=== PATIENT | male | born 1950 | race Hispanic/Latino ===

== ENCOUNTER 2017-10-02 10:08 | Day surgery (SDC) | payer OTHER ==
--- NOTE | 2017-09-26 16:49 | RAD REPORT ---
EXAM DESCRIPTION: RAD - Chest Pa And Lat (2 Views) - 09/26/2017 4:43 pm CLINICAL HISTORY: preop Chest pain. COMPARISON: CHEST SINGLE VIEW dated 02/19/2008; Knee Left Wo Cont dated 09/11/2017 FINDINGS: The lungs are clear. The heart is normal in size. No displaced fractures. Mild thoracic sp ondylosis. IMPRESSION: No acute or concerning finding suspected.
[2017-09-26 17:10] LABS: Absolute Lymphocytes (CBC) 5.9 K/uL (0.7-4.9); Absolute Monocytes 0.8 K/uL (0.1-1.3); Absolute Neutrophil 7.2 K/uL (1.8-8.0); Basophils % 0.5 % (0-1.3); Eosinophils % 1.6 % (0-4.4); Hematocrit 42.5 % (39.6-49.0); Lymphocytes % 41.5 % (15.3-44.8); MCH 31.7 pg (27.0-35.0); MCV 91.3 fL (80-100); MPV 10.3 fL (7.6-11.3); Monocytes % 5.9 % (3.3-12.3); RBC Red Blood Cell Count 4.66 M/uL (4.33-5.43)
[2017-09-26 17:36] LABS: Albumin 3.8 g/dL (3.4-5.0); Bilirubin Total 1.4 mg/dL (0.2-1.0); Protein, Total 7.5 g/dL (6.4-8.2)
--- OUTSIDE RECORDS SUMMARY | 2017-10-02 10:12 | XMS REPORT ---
:1950 Author Organization eClinicalWorks Care Team Providers Name Role Phone TalamantesDima Provider Role Unavailable Allergies, Adverse Reactions, Alerts Substance Reaction Event Type N.K.D.A. Info Not Available Non Drug Allergy Problems Problem Type Condition Code Onset Dates Condition Status Assessment Effusion of left knee joint M25.462 Active Assessment Complex tear of medial meniscus of S83.232D Active left knee as current injury, subsequent encounter Problem Acute pain of left knee M25.562 Active Problem Complex tear of medial meniscus of S83.232D Active left knee as current injury, subsequent encounter Problem Primary osteoarthritis of left M17.12 Active knee Assessment Acute pain of left knee M25.562 Active Assessment Primary osteoarthritis of left M17.12 Active knee Problem Effusion of left knee joint M25.462 Active Medications Medication Code Code Instructions Start End Status Dosage System Date Date Metformin HCl ND 78399967070 500 MG Orally Active 1 tablet Once a day with a meal Simvastatin ND 04962424514 40 MG Orally Active 1 tablet Once a day in the evening Novolin 70/30 ND 54308683708 (70-30) 100 Active as UNIT/ML directed Subcutaneous Tylenol # 3 NDC 0 300/30mg PO Active one tab BID PRN Hydrochlorothiazide ND 87216385018 25 MG Orally Active 1 tablet Once a day in the morning Lisinopril ND 03232993108 10 MG Orally Active 1 tablet Once a day Results No Known Results Summary Purpose eClinicalWorks Submission
--- OUTSIDE RECORDS SUMMARY | 2017-10-02 10:12 | XMS REPORT ---
:1950 Author Organization eClinicalWorks Care Team Providers Name Role Phone Dima Talamantes Provider Role Unavailable Allergies, Adverse Reactions, Alerts Substance Reaction Event Type N.K.D.A. Info Not Available Non Drug Allergy Problems Problem Type Condition Code Onset Dates Condition Status Assessment Complex tear of medial meniscus of S83.232D Active left knee as current injury, subsequent encounter Assessment Pain, joint, knee, left M25.562 Active Assessment Unilateral primary osteoarthritis, M17.12 Active left knee Assessment Effusion of left knee joint M25.462 Active Problem Unilateral primary osteoarthritis, M17.12 Active left knee Problem Primary osteoarthritis of left M17.12 Active knee Problem Pain, joint, knee, left M25.562 Active Problem Effusion of left knee joint M25.462 Active Problem Acute pain of left knee M25.562 Active Problem Complex tear of medial meniscus of S83.232D Active left knee as current injury, subsequent encounter Medications Medication Code System Code Instructions Start Date End Date Status Dosage Hydrochlorothiazide NDC 0 Active not defined Results No Known Results Summary Purpose eClinicalWorks Submission
[2017-10-02] MEDS ORDERED: CEFAZOLIN/SWI 1gm 1 GM/10 ML SYR ONE (10:48)
[2017-10-02] MEDS ORDERED: NA CHLORIDE 0.9% 1,000 ML ONE ×2 (10:48→14:46)
[2017-10-02] MEDS ORDERED: DEPO-MEDROL 40 MG/ML IM ONE (11:26)
[2017-10-02] MEDS ORDERED: LIDOCAINE 2% MPF 5 ML VIAL ONE (11:27)
[2017-10-02] MEDS ORDERED: PROPOFOL 200 MG/20 ML VIAL IV ONE (11:27)
[2017-10-02] MEDS ORDERED: BUPIVACAINE 0.25% PF 10 ML VIAL ONE (11:27)
[2017-10-02] MEDS ORDERED: FENTANYL CITR 100 MCG/2 ML ONE (11:27)
[2017-10-02] MEDS ORDERED: MIDAZOLAM HCL 2 MG/2 ML INJ ONE (11:27)
[2017-10-02] MEDS ORDERED: ONDANSETRON HCL 40 MG/20 ML VIAL ONE (12:26)
[2017-10-02] MEDS ORDERED: LABETALOL 20 MG/4ML SYRINGE IV ONE (13:25)
[2017-10-02] MEDS: MEPERIDINE HCL 50 MG/ML AMP ONE ×3 (14:04→14:30)
--- NOTE | 2017-10-02 14:13 | P.BOP ---
Preoperative diagnosis: Left Knee Internal Derangement, Med. Menisc. Tear by MRI Postoperative diagnosis: Tear med.menisc.,G3&4 chondromal med.compt;diffuse hypertrophic synovit. Primary procedure: D.A.&Part.Med.Menisec.,Shaving condromal.med.compt.; ant.partial synovectomy Package Liner: Dima Talamantes Estimated blood loss: <5mL Specimen: shavings Findings: severe grade 3&4chondromal.&complex tear med.menisc.diff.hyprtro.synovit. Anesthesia: General Complications: None Fluids & blood products: inj 0.25%[id number] & 1 mL Depo-Medrol 40mg Transferred to: Recovery Room Condition: Good
[2017-10-02 15:01] VITALS: BP 138/87; TEMP 96.9; O2SAT 98
[2017-10-02] MEDS ORDERED: HYDROCODONE/APAP 5/325 MG TAB ONE (15:19)
--- NOTE | 2017-10-04 23:40 | OP ---
Date of Procedure: 10/02/2017 Surgeon: Dima Talamantes MD Preoperative Diagnoses: Left knee internal derangement, medial meniscal tear by MRI. 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 Primary Procedure: Diagnostic arthroscopy of the left knee with partial medial meniscectomy, shaving of chondromalacia grade 3 and 4 medial compartment, and anterior partial synovectomy. Indications: This 67-year-old male has experienced popping, locking, and weakness in his left knee. 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 He has been walking wi th a pronounced limp and a cane for support. MRI scan has shown a medial meniscal tear and the patie nt is having severe mechanical symptoms. He has elected to proceed with diagnostic arthroscopy and i ndicated procedures. Technique: The patient was taken to the operating room and given a general anesthetic. The left low er extremity was placed in the knee galvan with the tourniquet in position. The foot of the bed was dropped and a trough cushion was placed under the right thigh and hip with a bolster to prevent exten laura of the hip. The instrumentation was placed in through the distal medial portal and the scope wa s placed in through the distal lateral portal. Only 2 portals were used for this case. The patellof emoral joint was inspected with smooth surface for the patella and a mildly excoriated surface for th e trochlear groove passing into the medial compartment. It was noted that there was bare bone expose d adjacent to the complex tear of the midbody and posterior horn of the medial meniscus. The suction punch shaver and left biting forceps were used to take the meniscal fragment back to a stable remnan t. Shaving and smoothing of both chondral surfaces in the medial compartment were carried out. Pass ing into the intracondylar notch, the ACL was inspected and noted to tighten with anterior drawer mohan t. The origin of the posterior cruciate ligament was inspected as well. Passing into the lateral co mpartment, the meniscus was noted to be intact with smooth chondral surfaces in the lateral compartme nt. Moving into the suprapatellar pouch, there was extensive hypertrophic synovitis and shaving and smoothing of the hypertrophic synovitis was carried out in the suprapatellar pouch and in both the me dial and lateral gutters and intracondylar notch. Estimated blood loss was less than 5 mL. The inst rumentation was withdrawn. Punctures were closed with 4-0 nylon with interrupted sutures. The punct ures were injected with 10 mL of 0.25% Marcaine plain and 1 cc of Depo-Medrol 40 mg was instilled int o the intraarticular space prior to application of Xeroform gauze, ABD pad, soft roll, and an Maurice wra p for bandage. The patient was then taken to the recovery room having tolerated this procedure well. FANG/YENI Voice ID: [id number] Report ID: [id number]
== END 2017-10-02 15:48 | disposition home or self-care (01) ==
LOC: OR 10:08
PROVIDERS: ATTEND Orthopaedic Surgery
PROC: 0SBD4ZZ Excision of Left Knee Joint, Percutaneous Endoscopic Approach (ICD-10-PCS; 2017-10-02)
PROC: 0SBD4ZZ Excision of Left Knee Joint, Percutaneous Endoscopic Approach (ICD-10-PCS; principal; 2017-10-02 11:30)
DX: S83.232D Complex tear of medial meniscus, current injury, left knee, subsequent encounter (principal); M25.462 Effusion, left knee; M17.12 Unilateral primary osteoarthritis, left knee; W50.2XXD Accidental twist by another person, subsequent encounter; S80.12XD Contusion of left lower leg, subsequent encounter; M94.262 Chondromalacia, left knee; M65.862 Other synovitis and tenosynovitis, left lower leg
CPT/HCPCS: 29876; 29881; 36415; 71046; 80053; 82962 ×2; 83036; 85025; 88304; J0690; J1030; J2175; J2250; J2405; J3010; J7030 ×2

== ENCOUNTER 2018-05-14 06:07 | Inpatient (IN) | payer OTHER ==
--- NOTE | 2018-05-08 10:48 | RAD REPORT ---
EXAM DESCRIPTION: RAD - Chest Pa And Lat (2 Views) - 05/08/2018 10:33 am CLINICAL HISTORY: Preop chest, left total knee replacement pending COMPARISON: September 26, 2017 TECHNIQUE: PA and lateral views of the chest were obtained. FINDINGS: The lungs are clear of an acute mass or infiltrate. No failure or volume overload. Lung ma rkings are prominent but not clearly different. Trachea is midline. Heart size is normal and central vasculature is within normal limits. No pleural effusion or pneumothorax seen. No acute bony findi ng noted. No aortic abnormality. IMPRESSION: No acute cardiopulmonary process. No significant change from comparison.
[2018-05-08 11:20] LABS: Absolute Lymphocytes (CBC) 4.1 K/uL (0.7-4.9); Absolute Monocytes 0.8 K/uL (0.1-1.3); Absolute Neutrophil 3.8 K/uL (1.8-8.0); Eosinophils % 1.6 % (0-4.4); Hematocrit 47.2 % (39.6-49.0); Lymphocytes % 45.9 % (15.3-44.8); MPV 9.3 fL (7.6-11.3); Monocytes % 8.7 % (3.3-12.3); RBC Red Blood Cell Count 5.13 M/uL (4.33-5.43)
[2018-05-08 11:21] LABS: Urine Appearance CLEAR; Urine Bilirubin NEGATIVE (NEG); Urine Blood NEGATIVE (NEG); Urine Color YELLOW; Urine Glucose 3+ (NEG); Urine Protein NEGATIVE (NEG); Urine Specific Gravity >=1.030 (1.005-1.030); Urine Urobilinogen 0.2 mg/dL (0.2-1.0); Urine pH 5.5 (5.0-7.0)
[2018-05-08 11:25] LABS: Urine Microscopic Reflex NO UMIC
[2018-05-08 11:25] LABS: Protime INR 0.96
[2018-05-08 11:43] LABS: Albumin 4.1 g/dL (3.4-5.0); Bilirubin Total 1.3 mg/dL (0.2-1.0); Potassium 4.4 mmol/L (3.5-5.1); Protein, Total 7.9 g/dL (6.4-8.2)
[2018-05-08 11:47] LABS: Albumin 4.1 g/dL (3.4-5.0); Bilirubin Direct 0.3 mg/dL (0-0.2); Bilirubin Total 1.3 mg/dL (0.2-1.0); Protein, Total 7.8 g/dL (6.4-8.2)
[2018-05-08 13:01] LABS: Platelet Estimate ADEQ
[2018-05-08 13:02] LABS: Blood Morphology Comment NOT SEEN (NOT SEEN)
--- NOTE | 2018-05-09 10:36 | EKG ---
Test Date: 2018-05-08 Test Time: 09:41:18 Infrastructure Software Engineer: FATIMAH MEASUREMENT RESULTS: Intervals: Rate: 69 UT: 180 QRSD: 72 QT: 402 QTc: 430 [place]: P: 58 UT: 180 QRS: 38 T: 33 INTERPRETIVE STATEMENTS: Normal sinus rhythm Normal ECG Compared to ECG 04/13/2013 07:22:10 No significant changes Electronically Signed On 05-08-18 17:49:31 CDT by Gigi Carrillo
--- OUTSIDE RECORDS SUMMARY | 2018-05-14 06:16 | XMS REPORT ---
[...] Dosage System Date Date Metformin HCl ND 75745705458 500 MG Orally Active 1 tablet Once a day with a meal Simvastatin ND 46488877438 40 MG Orally Active 1 tablet Once a day in the evening Novolin 70/30 ND 78366914600 (70-30) 100 Active as UNIT/ML directed Subcutaneous Tylenol # 3 NDC 0 300/30mg PO Active one tab BID PRN Hydrochlorothiazide ND 70765847842 25 MG Orally Active 1 tablet Once a day in the morning Lisinopril ND 65172464668 10 MG Orally Active 1 tablet Once a day Results No Known Results Summary Purpose eClinicalWorks Submission
--- OUTSIDE RECORDS SUMMARY | 2018-05-14 06:16 | XMS REPORT ---
:1950 Author Organization eClinicalWorks Care Team Providers Name Role Phone Talamantes Dima Provider Role Unavailable Allergies No Known Allergies Problems Problem Type Condition Code Onset Dates Condition Status Problem Unilateral primary osteoarthritis, M17.12 Active left knee Problem Primary osteoarthritis of left M17.12 Active knee Problem Pain, joint, knee, left M25.562 Active Problem Effusion of left knee joint M25.462 Active Problem Acute pain of left knee M25.562 Active Problem Complex tear of medial meniscus of S83.232D Active left knee as current injury, subsequent encounter Medications Medication Code System Code Instructions Start End Date Status Dosage Date [facility] 63491345112 5-325 MG Orally Oct 05, Active 1 tablet every 6 hrs 2017 as needed Results No Known Results Summary Purpose eClinicalWorks Submission
--- OUTSIDE RECORDS SUMMARY | 2018-05-14 06:17 | XMS REPORT ---
:1950 Author Organization eClinicalWorks Care Team Providers Name Role Phone Talamantes Dima Provider Role Unavailable Allergies, Adverse Reactions, Alerts Substance Reaction Event Type N.K.D.A. 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 Problem Complex tear of medial meniscus of S83.232D Active left knee as current injury, subsequent encounter Problem Effusion of left knee joint M25.462 Active Problem Primary osteoarthritis of left M17.12 Active knee Problem Acute pain of left knee M25.562 Active Medications Medication Code Code Instructions Start End Status Dosage System Date Date Hydrochlorothiazide [facility] 78519289928 25 MG Orally Active 1 tablet Once a day in the morning [place] [facility] 40540605458 5-325 MG Oct 05, Active 1 tablet Orally every 2017 as needed hrs Lisinopril ND 08867858354 10 MG Orally Active 1 tablet Once a day Tylenol # 3 NDC 0 300/30mg PO Active one tab BID PRN Novolin 70/30 ND 10124945725 (70-30) 100 Active as UNIT/ML directed Subcutaneous Metformin HCl ND 71961184307 500 MG Orally Active 1 tablet Once a day with a meal Simvastatin ND 43937109710 40 MG Orally Active 1 tablet Once a day in the evening Results No Known Results Summary Purpose eClinicalWorks Submission
--- OUTSIDE RECORDS SUMMARY | 2018-05-14 06:17 | XMS REPORT ---
[...] knee as current injury, subsequent encounter Assessment Primary osteoarthritis of left M17.12 Active [...] Start End Status Dosage System Date Date [place] [facility] 15456082007 5-325 MG Oct 05, Active 1 tablet Orally every 2017 as needed hrs Lisinopril ND 83285101210 10 MG Orally Active 1 tablet Once a day Novolin 70/30 [facility] 96606484963 (70-30) 100 Active as UNIT/ML directed Subcutaneous Hydrochlorothiazide ND 14844689720 25 MG Orally Active 1 tablet Once a day in the morning Metformin HCl ND 70971808656 500 MG Orally Active 1 tablet Once a day with a meal Simvastatin ND 87469025059 40 MG Orally Active 1 tablet Once a day in the evening Tylenol # 3 NDC 0 300/30mg PO Active one tab BID PRN Results No Known Results Summary Purpose eClinicalWorks Submission
--- OUTSIDE RECORDS SUMMARY | 2018-05-14 06:17 | XMS REPORT ---
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
--- OUTSIDE RECORDS SUMMARY | 2018-05-14 06:17 | XMS REPORT ---
:1950 Author Organization eClinicalWorks Care Team Providers Name Role Phone Talamantes Dima Provider Role Unavailable Allergies No Known Allergies Problems Problem Type Condition Code Onset Dates Condition Status Assessment Primary osteoarthritis of left M17.12 Active [...] pain of left knee M25.562 Active Medications No Known Medications Results No Known Results Summary Purpose eClinicalWorks Submission
--- OUTSIDE RECORDS SUMMARY | 2018-05-14 06:17 | XMS REPORT ---
[...] knee as current injury, subsequent encounter Assessment Effusion of left knee joint M25.462 Active Assessment Primary osteoarthritis of left M17.12 [...] Dosage System Date Date Metformin HCl ND 02672750308 500 MG Orally Active 1 tablet Once a day with a meal [place] ND 39237401173 5-325 MG Oct 05, Active 1 tablet Orally every 2017 as needed hrs Lisinopril ND 08906037093 10 MG Orally Active 1 tablet Once a day Novolin 70/30 ND 42833689486 (70-30) 100 Active as UNIT/ML directed Subcutaneous Tylenol # 3 NDC 0 300/30mg PO Active one tab BID PRN Hydrochlorothiazide ND 57197070479 25 MG Orally Active 1 tablet Once a day in the morning Simvastatin ND 12906459461 40 MG Orally Active 1 tablet Once a day in the evening Results Name Result Date Reference Range Unit Abnormality Flag Anaerobic Culture ----Anaerobic NO ANAEROBES GROWN. [id number] Culture Body Fluid Crystals ----Body Fluid NONE SEEN [id number] Crystals Gram Stain ----NO WBCS SEEN . [id number] ----NO ORGANISMS . [id number] SEEN Summary Purpose eClinicalWorks Submission
--- OUTSIDE RECORDS SUMMARY | 2018-05-14 06:17 | XMS REPORT ---
:1950 Author Organization eClinicalWorks Care Team Providers Name Role Phone TalamantesDima Provider Role Unavailable Allergies, Adverse Reactions, Alerts Substance Reaction Event Type N.K.D.A. Info Not Available Non Drug Allergy Problems Problem Type Condition Code Onset Dates Condition Status Assessment Primary osteoarthritis of left M17.12 Active knee Assessment Pain, joint, knee, left M25.562 Active Problem Pain, joint, knee, left M25.562 Active [...] Start End Status Dosage System Date Date Simvastatin [facility] 98006910990 40 MG Orally Active 1 tablet Once a day in the evening Jardiance [facility] [address]-93 Active not defined Lisinopril [facility] 17828986866 10 MG Orally Active 1 tablet Once a day Trulicity [facility] [address]-32 Active not defined Hydrochlorothiazide [facility] 84581644943 25 MG Orally Active 1 tablet Once a day in the morning Novolin 70/30 [facility] 34180010564 (70-30) 100 Active as UNIT/ML directed Subcutaneous Metformin HCl [facility] 79636830908 500 MG Orally Active 1 tablet Once a day with a meal Results No Known Results Summary Purpose eClinicalWorks Submission
--- OUTSIDE RECORDS SUMMARY | 2018-05-14 06:17 | XMS REPORT ---
[...] End Status Dosage System Date Date Hydrochlorothiazide [facility] 51817740911 25 MG Orally Active 1 tablet Once a day in the morning Metformin HCl [facility] 29844877855 500 MG Orally Active 1 tablet Once a day with a meal Lisinopril [facility] 75564161627 10 MG Orally Active 1 tablet Once a day Simvastatin [facility] 40473790586 40 MG Orally Active 1 tablet Once a day in the evening Novolin 70/30 [facility] 93597334396 (70-30) 100 Active as UNIT/ML directed Subcutaneous Results No Known Results Summary Purpose eClinicalWorks Submission
[2018-05-14] MEDS ORDERED: CEFAZOLIN/SWI 1gm 1 GM/10 ML SYR ONE (06:34)
[2018-05-14] MEDS ORDERED: NA CHLORIDE 0.9% 1,000 ML ONE ×2 (06:34→11:02)
[2018-05-14] MEDS ORDERED: NA CHLORIDE 0.9% 250 ML ONE (07:02)
[2018-05-14] MEDS ORDERED: BUPIVACA 0.5%/EPI 0.0005%/PF 30 ML VIAL ONE (07:02)
[2018-05-14] MEDS ORDERED: MIDAZOLAM HCL 2 MG/2 ML INJ ONE (07:08)
[2018-05-14] MEDS ORDERED: PROPOFOL 200 MG/20 ML VIAL IV ONE (07:08)
[2018-05-14] MEDS ORDERED: LIDOCAINE 2% MPF 5 ML VIAL ONE (07:08)
[2018-05-14] MEDS ORDERED: FENTANYL CITR 250 MCG/5 ML ONE (07:09)
[2018-05-14] MEDS ORDERED: ROPLVACAINE HCL 40 ML ONE (07:16)
[2018-05-14] MEDS ORDERED: DEXAMETHASONE 4 MG/ML VIAL ONE (07:16)
[2018-05-14] MEDS ORDERED: TRANEXAMIC ACID 1,000 MG in NA CHLORIDE 0.9% 50 ML IV SCH (07:30)
[2018-05-14] MEDS ORDERED: FENTANYL CITR 100 MCG/2 ML ONE (10:13)
[2018-05-14] MEDS ORDERED: KETOROLAC 30 MG/ML INJ ONE (10:57)
--- NOTE | 2018-05-14 11:45 | P.BOP ---
Preoperative diagnosis: PRIMARY OSTEOARTHRITIS LEFT KNEE Postoperative diagnosis: SAME Primary procedure: LEFT TOTAL KNEE ARTHROPLASTY WITH COMPUTER NAVIGATION, IMAGELESS Industrial Cleaning Technician: Dima Talamantes Estimated blood loss: 50mL Specimen: BONE SHARDS AND SOFT TISSUE DEBRIDED Findings: EBURNATED BONE MED. COMP Anesthesia: General Implants: SIGMA [id number];TIB [id number];35mmOD PATELLA;IFEOMA HDw /GENT Fluids & blood products: INJ 30 mL 0.5%MARCAINE Transferred to: Recovery Room Condition: Good
[2018-05-14] MEDS ORDERED: ZOLPIDEM TARTRATE 5 MG TABLET PO PRN (11:46)
[2018-05-14] MEDS ORDERED: DOCUSATE NA 100 MG CAP PO PRN (11:46)
[2018-05-14] MEDS ORDERED: ONDANSETRON 4 MG/2 ML VIAL IV PRN (11:46)
[2018-05-14] MEDS: HYDROMORPHONE HCL 2 MG/ML inj ONE ×2 (11:47→12:10)
--- NOTE | 2018-05-14 12:33 | RAD REPORT ---
EXAM DESCRIPTION: RAD - Knee Left 2 View - 05/14/2018 12:28 pm CLINICAL HISTORY: Post Op Left TKA COMPARISON: No comparisons FINDINGS: Left total knee arthroplasty is noted. Small amount of air is present in the joint. Skin s taples are noted anteriorly. No unexpected finding. IMPRESSION: Left TKA.
[2018-05-14 12:34] LABS: Hematocrit 46.3 % (39.6-49.0)
[2018-05-14 13:51] VITALS: BMI 26.6
[2018-05-14] MEDS: Ringers Lactate 1,000 ML IV SCH (14:13)
[2018-05-14] MEDS ORDERED: D50W 25 GM/50 ML SYRINGE IV PRN (15:32)
[2018-05-14] MEDS ORDERED: GLUCAGON 1 MG/VIAL IM PRN (15:32)
--- NOTE | 2018-05-14 15:40 | P.CNS ---
Date of Consult: 05/14/18 Reason for Consult: Medical Management Requesting Physician: Dima Talamantes Primary Care Provider: Dr. Calderon; Orthopedics-Dr. Talamantes Chief Complaint: Status post left knee replacement History of Present Illness: 68-year-old male presented to the hospital for left total knee arthroplasty. I was consulted for medical management. Patient with history of hypertension, diabetes, hyperlipidemia, and allergic rhinitis. Patient is insulin dependent. Patient currently stable this time. Patient had surgery today. No complaints noted. No prior problems prior to admission. A1c very well controlled. Medications reviewed. Lab reviewed. Allergies No Known Allergies Allergy (Verified 02/06/18 08:29) Home medications list reviewed: Yes Home Medications: Metformin HCl [Glucophage] 1,000 mg PO BID 04/12/13 Simvastatin [Zocor*] 40 mg PO DAILY 04/12/13 Fexofenadine HCl [Mona Allergy] 180 mg PO DAILY 09/26/17 Insuln Asp Prt/Insulin Aspart [Novolog Mix 70-30 Vial] 20 unit SQ TIDWM hydroCHLOROthiazide [Hydrochlorothiazide] 25 mg PO DAILY 09/26/17 Aspirin [Aspirin EC 81 MG] 81 mg PO DAILY 02/06/18 Dulaglutide [Trulicity] 0.75 mg SQ EVERY 7TH DAY 05/08/18 Empagliflozin [Jardiance] 10 mg PO DAILY 05/08/18 Lisinopril 10 mg PO DAILY 05/14/18 - Past Medical/Surgical History Diabetic: Yes -: Hypertension -: Diabetes mellitus type 2, insulin-dependent -: Osteoarthritis -: Hyperlipidemia -: Chronic allergic rhinitis -: History of splenectomy -: Splenectomy 1968 -: cholecystectomy 2014 -: left knee apa sep 2017 Psychosocial/ Personal History: Patient is . He has 3 children. 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 - Family History Mother Medical History: Diabetes, Cancer Notes: father had enlarged heart, mother had skin cancer - Social History Smoking Status: Former smoker Alcohol use: Yes CD- Drugs: No Caffeine use: Yes Place of Residence: Home Review of Systems General: As per HPI Eyes: Unremarkable ENT: Unremarkable Respiratory: Unremarkable Cardiovascular: Unremarkable Gastrointestinal: Unremarkable Genitourinary: Unremarkable Musculoskeletal: As per HPI Integumentary: Unremarkable Neurological: Unremarkable Lymphatics: Unremarkable Physical Examination Temp Pulse Resp BP Pulse Ox 98 F 108 H 18 139/75 93 05/14/18 13:35 05/14/18 13:35 05/14/18 13:35 05/14/18 13:35 05/14/18 13:35 General: Alert, In no apparent distress, Oriented x3, Cooperative HEENT: Atraumatic, Normocephalic, PERRLA, Mucous membr. moist/pink Neck: Supple, No Thyromegaly Respiratory: Clear to auscultation bilaterally, Normal air movement Cardiovascular: Normal pulses, Regular rate/rhythm Gastrointestinal: Normal bowel sounds, Soft and benign, Non-distended, No tenderness, No masses, No rebound, No guarding Musculoskeletal: No erythema, No tenderness, No warmth Integumentary: No tenderness/swelling, No erythema, No warmth, No cyanosis, Other (Postoperative changes to the left knee) Neurological: Normal speech, Normal strength at 5/5 x4 extr, Normal tone, Normal affect Laboratory Data (last 24 hrs) 05/14/18 12:08: Hgb 15.1, Hct 46.3 Conclusions/Impression: Impression: Left total knee arthroplasty secondary to osteoarthritis Diabetes mellitus type 2, insulin-dependent Hypertension Hyperlipidemia Chronic allergic rhinitis Plan: Left total knee arthroplasty secondary to osteoarthritis: Patient had surgery today. Anticipate start of physical therapy tomorrow. Continue DVT prophylaxis. Patient to be further evaluated for possible inpatient rehab versus home with outpatient physical therapy. Await further recommendations by orthopedics and physical therapy. Will provide incentive spirometer. Will continue with pain control medication. Diabetes mellitus type 2, insulin-dependent: Patient takes insulin 70/30 at home. Will start basal insulin-Lantus 10 units at night. Will provide sliding scale. Will monitor closely. Will hold his oral medication. Hypertension: Restart home medication-lisinopril and hydrochlorothiazide. Will monitor and adjust appropriately. Hyperlipidemia: Restart home medication. Chronic allergic rhinitis: Restart home medication. Time Spent Managing Pts care (In Minutes): 55
[2018-05-14] MEDS: INSULIN -REGULAR HUMAN 50 UNIT/0.5 ML ML SQ SCH ×2 (16:30→21:00)
[2018-05-14] MEDS: METFORMIN HCL 500 MG TAB PO SCH (16:42)
[2018-05-14] MEDS: CEFAZOLIN/SWI 1gm 1 GM/10 ML SYR IV SCH (16:43)
[2018-05-14] MEDS: MORPHINE 2 MG/ML SYR IV PRN (16:46)
[2018-05-14] MEDS: ATORVASTATIN 20 MG TAB PO SCH (20:49)
[2018-05-14] MEDS ORDERED: HOME MED 1 EA UNK (Metformin Hcl [Glucophage] 1,000 MG) PO SCH (21:00)
[2018-05-14] MEDS: INSULIN GLARGINE 100 UNITS/ML SQ SCH (21:04)
[2018-05-15] MEDS: CEFAZOLIN/SWI 1gm 1 GM/10 ML SYR IV SCH ×2 (00:42→09:57)
[2018-05-15] MEDS: HYDROCODONE/APAP 7.5/325 MG TAB PO PRN ×3 (05:55→18:56)
[2018-05-15 06:38] LABS: Hematocrit 43.2 % (39.6-49.0)
[2018-05-15 06:52] LABS: BUN Blood Urea Nitrogen 16 mg/dL (7-18); Bicarbonate 28 mmol/L (21-32); Glucose Level 124 mg/dL (74-106); Magnesium 2.2 mg/dL (1.8-2.4); Potassium 4.2 mmol/L (3.5-5.1); Sodium Level 140 mmol/L (136-145)
[2018-05-15] MEDS: INSULIN -REGULAR HUMAN 50 UNIT/0.5 ML ML SQ SCH ×4 (07:30→21:00)
[2018-05-15] MEDS ORDERED: HOME MED 1 EA UNK (Simvastatin [Zocor*] 40 MG) PO SCH (09:00)
--- NOTE | 2018-05-15 09:36 | P.PN ---
Subjective Date of Service: 05/15/18 Primary Care Provider: Dr. Calderon; Orthopedics-Dr. Talamantes Chief Complaint: Status post left knee replacement Subjective: Doing well Physical Examination - Vital Signs Temperature: 97.5 F Blood Pressure: 136/77 Pulse: 82 Respirations: 16 Pulse Ox (%): 97 - Physical Exam General: Alert, In no apparent distress, Oriented x3, Cooperative HEENT: Atraumatic Neck: Supple Respiratory: Clear to auscultation bilaterally, Normal air movement Cardiovascular: Normal pulses, Regular rate/rhythm Gastrointestinal: Normal bowel sounds, Soft and benign, Non-distended, No tenderness, No masses, No rebound, No guarding Musculoskeletal: No erythema, No tenderness, No warmth Integumentary: No tenderness/swelling, No erythema, No warmth, No cyanosis Neurological: Normal speech, Normal strength at 5/5 x4 extr, Normal tone - Studies Laboratory Data (last 24 hrs) 05/15/18 05:43: Sodium 140, Potassium 4.2, BUN 16, Creatinine 0.75, Glucose 124 H, Magnesium 2.2 05/15/18 05:43: Hgb 14.4, Hct 43.2 05/14/18 12:08: Hgb 15.1, Hct 46.3 Medications List Reviewed: Yes Assessment & Plan Discharge Plan: Home Plan to discharge in: 48 Hours Physician Review Additional Text: Impression: Left total knee arthroplasty secondary to osteoarthritis, postop day 1 Diabetes mellitus type 2, insulin-dependent Hypertension Hyperlipidemia Chronic allergic rhinitis Plan: Left total knee arthroplasty secondary to osteoarthritis, postop day 1: Patient had surgery yesterday. Patient has done well. Pain under control. Physical therapy to start today. Continue DVT prophylaxis and pain medication. Patient desires to go home at discharge with therapy. Encourage incentive spirometer. Await further recommendations from orthopedics. Diabetes mellitus type 2, insulin-dependent: Patient takes insulin 70/30 at home. Continue with basal insulin-Lantus 10 units at night. Will provide sliding scale. Will monitor closely. Will hold his oral medication. Hypertension: Continue home medication-lisinopril and hydrochlorothiazide. Will monitor and adjust appropriately. Hyperlipidemia: Continue home medication. Chronic allergic rhinitis: Continue home medication. Time Spent Managing Pts Care (In Minutes): 55
[2018-05-15] MEDS: Ringers Lactate 1,000 ML IV SCH (09:57)
[2018-05-15] MEDS: FEXOFENADINE 180 MG TAB PO SCH (09:57)
[2018-05-15] MEDS: MORPHINE 2 MG/ML SYR IV PRN ×3 (09:57→21:29)
[2018-05-15] MEDS: METFORMIN HCL 500 MG TAB PO SCH ×2 (09:58→16:50)
[2018-05-15] MEDS: CELECOXIB 100 MG CAPSULE PO SCH (09:58)
[2018-05-15] MEDS: LISINOPRIL 10 MG TAB PO SCH (09:58)
[2018-05-15] MEDS: hydroCHLOROthiazide 25 MG TAB PO SCH (09:58)
[2018-05-15] MEDS: ENOXAPARIN 40 MG/0.4 ML SQ SCH (16:50)
--- NOTE | 2018-05-15 20:20 | OP ---
Date of Procedure: 05/14/2018 Surgeon: Dima Talamantes MD Tool Or Die Drawing Checker: Dr. Bairon Talamantes. Preoperative Diagnosis: Primary osteoarthritis, left knee. Postoperative Diagnosis: Primary osteoarthritis, left knee. Procedures Performed: Left total knee arthroplasty with computer navigation, imageless. Technique: The patient was taken to the operating room and given a general anesthetic. He was place d in the supine position with a bolster under the left hip and a rest on the operating table to posit ion the limb at 90 degrees flexion. The prepping and draping was carried out with a tourniquet in th e proximal thigh. The draping included Ioban sticky drape applied after the incision was drawn on th e skin. Exsanguination with an Esmarch bandage was followed by inflating the tourniquet to 250 mmHg. This was left up for 135 minutes and deflated after cementing had been accomplished. The incision was made on the anterior aspect of the knee beginning just medial to the tibial tubercle and extendin g over the medial third of the patella and approximately 4-5 cm from the proximal pole of the patella . This was carried sharply through the skin and subcutaneous tissue with cauterization to provide he mostasis. The medial parapatellar approach was utilized to allow eversion of the patella. The bev ed patella was measured at 21 mm in thickness. The size 35 mm oval dome patella was chosen and the a djustments were made for the cutting jig. The articular surface was removed. PEG holes were drilled . The trial component for the patella was put in position and measured again at 21 mm thickness. Th e anterior aspect of the knee was sharply debrided to include ACL and origin of PCL and meniscal frag ments that could be reached along with some of the fat pad and ligamentum mucosum. The thickening of the fat pad was noted and was quite tense and tight. The arrays were put in position on a 3 mm thre aded pins proximally in the incision at the distal medial femur and the arrays were put through 2 pun ctures close to the mid tibial area. Once the arrays were in position, the limb was moved in circumd uction to record the center of rotation of the femoral head. The registration was carried out in seq uence for the femur and the tibia and the computer solved for a size 4 femur and size 5 tibia. Numbe rs were accepted and the cutting guide for the proximal tibia was navigated into position. Hohmann r etractors were placed at the medial and lateral and posterior positions and the oscillating saw was u sed to make the cut. The tibial plateau portion was removed and the flat-footed array indicated an a ccurate cut had been made. Tensiometers were put in position. The numbers were good and no addition al ligament loosening was needed at that time, so progression to cutting the distal femur was accompl ished by navigating that cutting jig into position and making that cut. It was verified with the fla t-footed array. The 4-in-1 cutting guide for the size 4 was chosen, and those cuts were made after v erification of the anterior cut. With the posterior cuts made, it was found that the 10 mm jig in ex tension was a good fit, but in flexion, the 10 mm jig would not fit. It was necessary to increase th e size of the flexion gap, so the distal femur was recut to the size 3 femoral component. At that po int, the spacer for the 10 mm insert was a good fit for extension and flexion. The switch box installer was pl aced in position. That cut was made, and the trial fit perfectly. It was removed and preparation of the tibial cut surface was accomplished for the size 4 tray. The trial components all in position s howed excellent extension to 0 degrees and flexion to 130 degrees without displacement of components or patella that was freely tracking. The trial components were all removed. Simpulse lavage was uti lized and then drying of the cut surfaces was accomplished while 2 batches of [place] HV cement with gentamicin were placed in a cement gun. The injection technique was utilized for the proximal cut holland rface of the tibia. The tibial component was tapped into position. Excess cement was curetted away. The injection technique was carried out for the distal femur and the component size 3 was tapped in to position and held there with a trial insert placed between tibial and femoral components with the knee extended. The injection technique was used for the patella and the 35 mm oval dome patella was clamped into position. Cement was allowed to set for 18 minutes. The tourniquet was released after 13 minutes at 135 minutes. The closure was then affected after Simpulse lavage was again utilized at each level of closure using #1 Vicryl for the fascial layer, 2-0 Vicryl for the superficial subcutan eous layer, and skin jon for the skin. Aquacel bandage was applied. Estimated blood loss was 50 mL. The patient had been given Ancef 1 g 30 minutes prior to the procedure. At the time of the inc ision, he was given 1 g of tranexamic acid IV at the time of the incision and another gram was given at the initiation of closure. At the end of the operation, 30 mL of 0.5% Marcaine with epinephrine was injected into the incisional area prior to the Aquacel costa ges applied. FANG/YENI Voice ID: [id number] Report ID: [id number]
--- NOTE | 2018-05-15 20:25 | P.PN ---
Date of Service: 05/15/18 (POD#1) S: This patient was seen at just before 10 oclock this morning and after 4 PM this afternoon. He continues to have great progress for postop day number one.This patient was seen at just before 10 oclock this morning and after 4 PM this afternoon. He continues to have great progress for postop day number one. O: VSS, Afebrile, hemoglobin today is 14.4 down slightly from 15.1 postoperatively pain is listed as zero, six, two with the first significant number appearing at 5:55 AM as his block wore off. The patient was noted during morning therapy to have limited quad control and was only able to make 95 feet of ambulation with a rolling walker. This afternoonhe was able to make 270 feet with a rolling walker, a complete round of the second-floor hallway. His CPM is set at 65aind well-tolerated. A: This patient is highly motivated and is making great progress in his first postoperative day. P: Patient is on track for possible discharge Sunday morning. Mobilization will be continued with twice daily physical therapy efforts. Plan is for discharge to home health care and physical therapy until the patient is comfortable enough to travel for outpatient physical therapy.
[2018-05-15] MEDS: ATORVASTATIN 20 MG TAB PO SCH (21:30)
[2018-05-15] MEDS: INSULIN GLARGINE 100 UNITS/ML SQ SCH (21:31)
[2018-05-15 23:37] VITALS: O2SAT 94
[2018-05-16] MEDS: HYDROCODONE/APAP 7.5/325 MG TAB PO PRN ×3 (03:26→17:25)
[2018-05-16 06:38] LABS: Hematocrit 45.8 % (39.6-49.0)
[2018-05-16 06:50] LABS: Magnesium 2.2 mg/dL (1.8-2.4); Potassium 4.9 mmol/L (3.5-5.1)
[2018-05-16] MEDS: INSULIN -REGULAR HUMAN 50 UNIT/0.5 ML ML SQ SCH ×4 (07:30→21:00)
[2018-05-16] MEDS: CELECOXIB 100 MG CAPSULE PO SCH (09:00)
[2018-05-16] MEDS: FEXOFENADINE 180 MG TAB PO SCH (09:46)
[2018-05-16] MEDS: hydroCHLOROthiazide 25 MG TAB PO SCH (09:46)
[2018-05-16] MEDS: METFORMIN HCL 500 MG TAB PO SCH ×2 (09:47→17:28)
[2018-05-16] MEDS: MORPHINE 2 MG/ML SYR IV PRN (09:47)
[2018-05-16] MEDS: LISINOPRIL 10 MG TAB PO SCH (09:47)
--- NOTE | 2018-05-16 11:49 | P.PN ---
Subjective Date of Service: 05/16/18 Primary Care Provider: Dr. Calderon; Orthopedics-Dr. Talamantes Chief Complaint: Status post left knee replacement Subjective: Improving Physical Examination - Vital Signs Temperature: 97.5 F Blood Pressure: 139/77 Pulse: 88 Respirations: 18 Pulse Ox (%): 94 - Physical Exam General: Alert, In no apparent distress, Oriented x3, Cooperative HEENT: Atraumatic Neck: Supple Respiratory: Clear to auscultation bilaterally, Normal air movement Cardiovascular: Normal pulses, Regular rate/rhythm Gastrointestinal: Normal bowel sounds, Soft and benign, Non-distended, No masses , No rebound, No guarding Musculoskeletal: No erythema, No tenderness, No warmth Integumentary: No tenderness/swelling, No erythema, No warmth, No cyanosis Neurological: Normal speech, Normal strength at 5/5 x4 extr, Normal tone, Normal affect - Studies Laboratory Data (last 24 hrs) 05/16/18 05:48: Sodium 135 L, Potassium 4.9, BUN 14, Creatinine 0.86, Glucose 144 H, Magnesium 2.2 05/16/18 05:48: Hgb 15.5, Hct 45.8 Medications List Reviewed: Yes Assessment & Plan Discharge Plan: Home Plan to discharge in: 24 Hours Physician Review Additional Text: Impression: Left total knee arthroplasty secondary to osteoarthritis, postop day 2 Diabetes mellitus type 2, insulin-dependent Hypertension Hyperlipidemia Chronic allergic rhinitis Plan: Left total knee arthroplasty secondary to osteoarthritis, postop day 2: Patient continues to improve. Continue with physical therapy. Continue DVT prophylaxis and pain control medication. Patient desires to go home. Anticipate discharge in the next 1-2 days. Will discuss with orthopedics. Diabetes mellitus type 2, insulin-dependent: Patient takes insulin 70/30 at home. Continue with basal insulin-Lantus 10 units at night. Will provide sliding scale. Will monitor closely. Will hold his oral medication. Hypertension: Continue home medication-lisinopril and hydrochlorothiazide. Will monitor and adjust appropriately. Hyperlipidemia: Continue home medication. Chronic allergic rhinitis: Continue home medication. Time Spent Managing Pts Care (In Minutes): 55
[2018-05-16] MEDS: ENOXAPARIN 40 MG/0.4 ML SQ SCH (17:25)
--- NOTE | 2018-05-16 19:29 | P.PN ---
Date of Service: 05/16/18 (POD#2) S: THIS PATIENT WAS SEEN EARLY THIS AFTERNOON SMARTING A LITTLE BIT FROM PHYSICAL THERAPY GOING A BIT TOO FAST BY HIS ESTIMATE. HE CONTINUES WITH GREAT PROGRESS FOR POSTOP DAY #2. O: VSS EXCEPT FOR RUNS OF TACHYCARDIA TO 97 AND 105. PAIN CHART IS 8, 8, 8, 0 , 4, 3, 3/10. THE RUN OF 8s WAS JUST AFTER PHYSICAL THERAPY. AFEBRILE, HEMOGLOBIN TODAY IS BACKUP TO 15.5. AFTERNOON PHYSICAL THERAPY BUT THE PATIENT AT MAKING 520 FEET WITH HIS ROLLING WALKER WITH THE CPM ADVANCED TO 080 DEGREES. A: THIS PATIENT CONTINUES TO MAKE GREAT PROGRESS FOR HIS SECOND POSTOPERATIVE DAY. P: Patient continues on track for possible discharge Sunday morning. Mobilization will be continued with morning physical therapy efforts before discharge. THE PATIENT'S AQUACEL BANDAGE WILL BE CHANGED WITH ALCOHOL SWABS FOLLOWED BY APPLICATION OF A NEW AQUACEL BANDAGE PRIOR TO DISCHARGE THE PATIENT WILL HAVE HOME HEALTH THERAPY ARRANGED FROM THE OFFICE FOR ACTIVITIES OF DAILY LIVING, MONITORING OF BANDAGE WITH BANDAGE CHANGE TO 5-7 DAYS AND WHEN NECESSARY USING THE AQUACEL BANDAGES. HOME HEALTH PHYSICAL THERAPY WILL CONTINUE GAIT TRAINING AND TRANSFERS WEIGHT BEARING TOLERATED LEFT LOWER EXTREMITY AND MONITOR HIS CPM TO INCREASE 5 PER DAY TOLERATED TO A MAXIMUM OF 120 ONLY IF TOLERATED. AAROM AND PROM EXERCISES AND STRETCHES ARE AUTHORIZED. NORCO 7.5/325 WILL BE PRESCRIBED 1 BY MOUTH EVERY 4-6 HOURS NEEDED FOR PAIN,# 40. THE PATIENT WILL TAKE XARELTO 10 MG TABLETS 1 BY MOUTH DAILY 12 DAYS<#12. HOME MEDICATIONS WILL BE RESUMED PRESCRIBED. RETURN TO MY OFFICE WILL BE IN 10-12 DAYS FOR REMOVAL OF ADRY.
[2018-05-16] MEDS: INSULIN GLARGINE 100 UNITS/ML SQ SCH (21:06)
[2018-05-16] MEDS: ATORVASTATIN 20 MG TAB PO SCH (21:08)
[2018-05-17] MEDS: HYDROCODONE/APAP 7.5/325 MG TAB PO PRN ×3 (03:35→14:29)
[2018-05-17 06:02] LABS: Hematocrit 42.6 % (39.6-49.0)
[2018-05-17 06:05] LABS: Potassium 4.4 mmol/L (3.5-5.1)
[2018-05-17] MEDS: INSULIN -REGULAR HUMAN 50 UNIT/0.5 ML ML SQ SCH ×2 (07:30→11:30)
--- NOTE | 2018-05-17 08:40 | P.PN ---
Subjective Date of Service: 05/17/18 Primary Care Provider: Dr. Calderon; Orthopedics-Dr. Talamantes Chief Complaint: Status post left knee replacement Subjective: Doing well Physical Examination - Vital Signs Temperature: 98.0 F Blood Pressure: 117/73 Pulse: 119 Respirations: 16 Pulse Ox (%): 96 - Physical Exam General: Alert, In no apparent distress, Oriented x3, Cooperative HEENT: Atraumatic Neck: Supple Respiratory: Clear to auscultation bilaterally, Normal air movement Cardiovascular: Normal pulses, Regular rate/rhythm Gastrointestinal: Normal bowel sounds, Soft and benign, Non-distended, No tenderness, No masses, No rebound, No guarding Musculoskeletal: No erythema, No tenderness, No warmth Integumentary: No tenderness/swelling, No erythema, No warmth, No cyanosis Neurological: Normal speech, Normal strength at 5/5 x4 extr, Normal tone, Normal affect - Studies Laboratory Data (last 24 hrs) 05/17/18 05:29: Sodium 133 L, Potassium 4.4, BUN 15, Creatinine 0.96, Glucose 211 H, Magnesium 2.0 05/17/18 05:24: Hgb 14.3, Hct 42.6 Medications List Reviewed: Yes Assessment & Plan Discharge Plan: Home Plan to discharge in: 24 Hours Physician Review Additional Text: Impression: Left total knee arthroplasty secondary to osteoarthritis, postop day 3 Diabetes mellitus type 2, insulin-dependent Hypertension Hyperlipidemia Chronic allergic rhinitis Plan: Left total knee arthroplasty secondary to osteoarthritis, postop day 3: Patient continues to improve and doing well with physical therapy. Anticipate discharge today with home health and physical therapy. Continue DVT prophylaxis at home at discharge. This can be provided by orthopedics. Encourage incentive spirometer. Fall precautions in place. Diabetes mellitus type 2, insulin-dependent: Patient takes insulin 70/30 at home. Patient will continue with his home medication at discharge. Hypertension: Continue home medication-lisinopril and hydrochlorothiazide. Will monitor and adjust appropriately. Hyperlipidemia: Continue home medication. Chronic allergic rhinitis: Continue home medication. Time Spent Managing Pts Care (In Minutes): 55
[2018-05-17] MEDS: FEXOFENADINE 180 MG TAB PO SCH (09:00)
[2018-05-17] MEDS: METFORMIN HCL 500 MG TAB PO SCH (09:44)
[2018-05-17] MEDS: LISINOPRIL 10 MG TAB PO SCH (09:45)
[2018-05-17] MEDS: hydroCHLOROthiazide 25 MG TAB PO SCH (09:46)
--- NOTE | 2018-05-17 13:50 | P.PN ---
Date of Service: 05/17/18 (POD#3) S: THIS PATIENT RESTING AFTER GOOD SESSION WITH PT THIS MORNING. HE CONTINUES WITH GREAT PROGRESS FOR POSTOP DAY #3, READY FOR DISCHARGE. O: VSS, AFEBRILE, HEMOGLOBIN TODAY IS BACKUP TO 14.3. BANDAGE CLEAN, DRY, AND INTACT. A: THIS PATIENT CONTINUES TO MAKE GREAT PROGRESS FOR HIS SECOND POSTOPERATIVE DAY. P: PATIENT TO BE DISCHARGED TODAY. THE PATIENT'S AQUACEL BANDAGE WILL BE CHANGED WITH ALCOHOL SWABS FOLLOWED BY APPLICATION OF A NEW AQUACEL BANDAGE PRIOR TO DISCHARGE THE PATIENT WILL HAVE HOME HEALTH THERAPY ARRANGED FROM THE OFFICE FOR ACTIVITIES OF DAILY LIVING, MONITORING OF BANDAGE WITH BANDAGE CHANGES Q 5-7 DAYS AND WHEN NECESSARY USING THE AQUACEL BANDAGES. HOME HEALTH PHYSICAL THERAPY WILL CONTINUE GAIT TRAINING AND TRANSFERS WEIGHT BEARING TOLERATED LEFT LOWER EXTREMITY AND MONITOR HIS CPM TO INCREASE 5 PER DAY TOLERATED TO A MAXIMUM OF 120 ONLY IF TOLERATED. AAROM AND PROM EXERCISES AND STRETCHES ARE AUTHORIZED. NORCO 7.5/325 WILL BE PRESCRIBED 1 BY MOUTH EVERY 4-6 HOURS NEEDED FOR PAIN,# 40. THE PATIENT WILL TAKE XARELTO 10 MG TABLETS 1 BY MOUTH DAILY 12 DAYS<#12. HOME MEDICATIONS WILL BE RESUMED PRESCRIBED EXCEPT ASA 81 mg TO BE HELD UNTIL XARELTO TABS FINISHED RETURN TO MY OFFICE WILL BE IN 10-12 DAYS FOR REMOVAL OF ADRY.
[2018-05-17 15:31] VITALS: BP 123/77; TEMP 97.9
== END 2018-05-17 16:19 | disposition home health service (06) | DRG 470 ==
LOC: OR 06:07 → 2ND 12:24
PROVIDERS: ADMIT Orthopaedic Surgery; ATTEND Orthopaedic Surgery
PROC: 8E0YXBZ Computer Assisted Procedure of Lower Extremity (ICD-10-PCS; 2018-05-14)
PROC: 0SRD0J9 Replacement of Left Knee Joint with Synthetic Substitute, Cemented, Open Approach (ICD-10-PCS; principal; 2018-05-14 07:30)
DX: M17.12 Unilateral primary osteoarthritis, left knee (principal); I10 Essential (primary) hypertension; E78.5 Hyperlipidemia, unspecified; J30.9 Allergic rhinitis, unspecified; E11.9 Type 2 diabetes mellitus without complications; Z79.4 Long term (current) use of insulin
CPT/HCPCS: 36415; 71046; 80048; 80053; 80076; 81003; 82962; 83036; 83735; 85014; 85018; 85025; 85610; 85730; 86850; 86900; 86901; 88304; 88305; 88311; 93005; 97112; 97116; 97139; 97163; J0690; J1170; J1650; J2250; J2270; J2704; J2795; J3010; J7030

== ENCOUNTER 2018-12-21 11:22 | Inpatient (IN) | payer OTHER ==
[2018-12-21] MEDS ORDERED: ACETAMINOPHEN 500 MG TAB ONE (12:01)
[2018-12-21] MEDS ORDERED: NA CHLORIDE 0.9% 1,000 ML ONE ×3 (12:01→16:00)
[2018-12-21 12:42] LABS: Albumin 4.4 g/dL (3.4-5.0); Bilirubin Direct 0.5 mg/dL (0-0.2); Bilirubin Total 2.5 mg/dL (0.2-1.0); Potassium 3.8 mmol/L (3.5-5.1); Protein, Total 8.5 g/dL (6.4-8.2)
[2018-12-21 12:45] LABS: Absolute Lymphocytes (CBC) 0.8 K/uL (0.7-4.9); Basophils % 0.2 % (0-1.3); Hematocrit 47.4 % (39.6-49.0); Lymphocytes % 5.1 % (15.3-44.8); MPV 8.9 fL (7.6-11.3); RBC Red Blood Cell Count 5.14 M/uL (4.33-5.43)
[2018-12-21 13:22] LABS: Urine Blood 3+ (NEG); Urine Glucose 2+ (NEG); Urine Protein NEGATIVE (NEG); Urine pH 5.5 (5.0-7.0)
[2018-12-21 13:23] LABS: Urine Bacteria <20 /HPF (NONE SEEN); Urine Culture Reflex Order REFLEXED; Urine RBC >50 /HPF (NONE SEEN)
[2018-12-21 13:24] LABS: Urine White Blood Cell Casts OK
[2018-12-21 13:28] LABS: Blood Morphology Comment NOTED (NOT SEEN); Platelet Estimate ADEQ
[2018-12-21 13:31] LABS: Anisocytosis 1+; Howell-Jolly Bodies NOTED; Poikilocytosis 1+
--- NOTE | 2018-12-21 13:35 | RAD REPORT ---
EXAM DESCRIPTION: Milana Single View12/21/2018 1:14 pm CLINICAL HISTORY: Cough COMPARISON: April 2018 FINDINGS: The lungs appear clear of acute infiltrate. The heart is normal size IMPRESSION: No acute abnormalities displayed
--- NOTE | 2018-12-21 13:35 | RAD REPORT ---
EXAM DESCRIPTION: CT - Abdomen Pelvis W Contrast - 12/21/2018 1:07 pm CLINICAL HISTORY: Abdominal pain COMPARISON: 2007 TECHNIQUE: Computed axial tomography of the abdomen pelvis was obtained. 100 cc Isovue-300 was admin istered intravenously. Oral contrast was not requested which limits evaluation of bowel. All CT scans are performed using dose optimization technique as appropriate and may include automated exposure control or mA/KV adjustment according to patient size. FINDINGS: The liver, pancreas, adrenal and kidneys appear unremarkable. Splenectomy. Cholecystectomy The prostate gland is moderately to markedly enlarged. The wall of the bladder is thickened. Small right inguinal hernia contains fat There is no evidence of diverticulitis. Normal appendix IMPRESSION: Moderate to marked prostatic enlargement. Thickened bladder wall may be secondary to a chronic bladder outlet obstruction
[2018-12-21] MEDS ORDERED: CEFTRIAXONE/SWI 1gm 1 GM/10 ML SYR ONE (14:03)
--- NOTE | 2018-12-21 14:48 | EDPHYS ---
Physician Documentation [facility] Name: Freddy Alexander Age: 68 yrs Sex: Male : 1950 Arrival Date: 12/21/2018 Time: 11:26 Bed 18 Private MD: ED Physician Flakito Li HPI: 12/21 11:49 This 68 yrs old Male presents to ER via Ambulatory with complaints of Fever. pm1 11:49 The patient reports fever. Onset: The symptoms/episode began/occurred yesterday. pm1 Modifying factors: on , patient had a biopsy of enlarged prostate at Dr. Rollins's office. Associated signs and symptoms: Pertinent positives: cough, Hematuria , Pertinent negatives: abdominal pain, shortness of breath, pain with urinating. Severity of symptoms: in the emergency department the symptoms are worse. Historical: - Allergies: 11:35 No Known Allergies; sv - PMHx: 11:35 Diabetes - IDDM; Hypertension; sv - PSHx: 11:35 SPLEENECTOMY; sv - Immunization history:: Adult Immunizations up to date. - Social history:: Smoking status: Patient/guardian denies using tobacco. - Ebola Screening: : Patient negative for fever greater than or equal to 101.5 degrees Fahrenheit, and additional compatible Ebola Virus Disease symptoms Patient denies exposure to infectious person Patient denies travel to an Ebola-affected area in the 21 days before illness onset No symptoms or risks identified at this time. ROS: 11:49 Eyes: Negative for injury, pain, redness, and discharge, ENT: Negative for injury, pm1 pain, and discharge, Neck: Negative for injury, pain, and swelling, Cardiovascular: Negative for chest pain, palpitations, and edema. 11:49 Abdomen/GI: Negative for abdominal pain, nausea, vomiting, diarrhea, and constipation, Back: Negative for injury and pain. 11:49 MS/Extremity: Negative for injury and deformity, Skin: Negative for injury, rash, and discoloration, Neuro: Negative for headache, weakness, numbness, tingling, and seizure. 11:49 Constitutional: Positive for fever, Negative for poor PO intake. 11:49 Respiratory: Positive for cough, Negative for shortness of breath, sputum production, wheezing. 11:49 : Positive for hematuria, Negative for flank pain, penile pain, testicular pain Exam: 11:49 Head/Face: Normocephalic, atraumatic. Eyes: Pupils equal round and reactive to light, pm1 extra-ocular motions intact. Lids and lashes normal. Conjunctiva and sclera are non-icteric and not injected. Cornea within normal limits. Periorbital areas with no swelling, redness, or edema. ENT: Nares patent. No nasal discharge, no septal abnormalities noted. Tympanic membranes are normal and external auditory canals are clear. Oropharynx with no redness, swelling, or masses, exudates, or evidence of obstruction, uvula midline. Mucous membranes moist. Neck: Trachea midline, no thyromegaly or masses palpated, and no cervical lymphadenopathy. Supple, full range of motion without nuchal rigidity, or vertebral point tenderness. No Meningismus. Chest/axilla: Normal chest wall appearance and motion. Nontender with no deformity. No lesions are appreciated. Cardiovascular: Regular rate and rhythm with a normal S1 and S2. No gallops, murmurs, or rubs. Normal PMI, no JVD. No pulse deficits. Respiratory: Lungs have equal breath sounds bilaterally, clear to auscultation and percussion. No rales, rhonchi or wheezes noted. No increased work of breathing, no retractions or nasal flaring. Abdomen/GI: Soft, non-tender, with normal bowel sounds. No distension or tympany. No guarding or rebound. No evidence of tenderness throughout. Back: No spinal tenderness. No costovertebral tenderness. Full range of motion. Skin: Warm, dry with normal turgor. Normal color with no rashes, no lesions, and no evidence of cellulitis. MS/ Extremity: Pulses equal, no cyanosis. Neurovascular intact. Full, normal range of motion. 11:49 Constitutional: The patient appears in no acute distress, alert, awake, comfortable, non-diaphoretic, non-toxic, well developed, well hydrated, well groomed, well nourished, febrile. 11:49 Neuro: Orientation: is normal, Motor: is normal, moves all fours. Vital Signs: 11:36 BP 156 / 88; Pulse 124; Resp 16; Temp 103.1(O); Pulse Ox 95% ; Weight 79.83 kg; Height sv 5 ft. 6 in. (167.64 cm); 12:41 BP 125 / 84; Pulse 118; Resp 16 S; Temp 100.4(O); Pulse Ox 97% on R/A; ca1 13:00 Temp 100; jb8 13:34 BP 125 / 84; Pulse 117; Resp 19; Pulse Ox 96% ; jb8 15:25 BP 126 / 76; Pulse 112; Resp 17 S; Temp 100(O); Pulse Ox 95% on R/A; ca1 16:55 BP 138 / 79; Pulse 113; Resp 18 S; Temp 99.8(O); Pulse Ox 96% on R/A; ca1 17:59 BP 138 / 88; Pulse 114; Resp 16 S; Temp 101.4(O); Pulse Ox 97% on R/A; ca1 11:36 Body Mass Index 28.41 (79.83 kg, 167.64 cm) sv MDM: 11:42 Patient medically screened. pm1 14:32 Physician consultation: Katia Rollins MD was called at 13:47, was contacted at 14:32, pm1 regarding admission, consult, patient's condition, would like admission per Dr. Rick Bahena MD Abx: Rocephin and Gentamycin. Give Gentamycin loading dose 240 mg. Flomax 1 tab daily, Regular diet, IV fluids, and labs in AM. 14:45 Data reviewed: vital signs. Data interpreted: Pulse oximetry: on room air is 96 %. pm1 Interpretation: normal. Counseling: I had a detailed discussion with the patient and/or guardian regarding: the historical points, exam findings, and any diagnostic results supporting the discharge/admit diagnosis, lab results, radiology results, the need for outpatient follow up, to return to the emergency department if symptoms worsen or persist or if there are any questions or concerns that arise at home. 14:56 Physician consultation: Rick Bahena MD was called at 14:56, was contacted at 14:56, pm1 regarding admission, patient's condition, and will see patient. 12/21 11:54 Order name: Basic Metabolic Panel; Complete Time: 12:46 pm1 12/21 11:54 Order name: Blood Culture Adult (2) pm1 12/21 11:54 Order name: CBC with Diff; Complete Time: 13:38 pm1 12/21 11:54 Order name: Lactate; Complete Time: 12:46 pm1 12/21 11:54 Order name: LFT's; Complete Time: 12:46 pm1 12/21 11:54 Order name: Procalcitonin; Complete Time: 12:53 pm1 12/21 11:54 Order name: Urine Microscopic Only; Complete Time: 13:29 pm1 12/21 11:54 Order name: Flu; Complete Time: 12:41 pm1 12/21 13:13 Order name: Urine Dipstick--Ancillary (enter results); Complete Time: 13:29 mt 12/21 13:24 Order name: CBC Smear Scan; Complete Time: 13:38 EDMS 12/21 13:31 Order name: Urine Culture EDMS 12/21 15:47 Order name: Basic Metabolic Panel EDMS 12/21 15:47 Order name: CBC without Diff EDMS 12/21 15:50 Order name: Lactate Sepsis 2 HR Follow-up; Complete Time: 16:00 EDMS 12/21 11:54 Order name: Chest Single View XRAY; Complete Time: 13:38 pm1 12/21 11:54 Order name: IV Saline Lock - Large Bore; Complete Time: 12:10 pm1 12/21 11:54 Order name: Labs collected and sent; Complete Time: 12:10 pm1 12/21 11:54 Order name: Urine Dipstick-Ancillary (obtain specimen); Complete Time: 13:07 pm1 12/21 11:54 Order name: CT Abd/Pelvis - IV Contrast Only; Complete Time: 13:38 pm1 12/21 15:47 Order name: ERT HOSPITAL ADMIT/OBSERVATION EDMS 12/21 15:47 Order name: Consistent Carb (ADA) 2000 Gene EDMS Administered Medications: 12:05 Drug: Tylenol 1000 mg Route: PO; ca1 13:00 Follow up: Temp 100; Response: No adverse reaction; Temperature is decreased jb8 13:07 Follow up: Response: No adverse reaction; Temperature is decreased ca1 12:09 Drug: NS 0.9% 1000 ml Route: IV; Rate: 1000 ml; Site: left antecubital; ca1 13:00 Follow up: IV Status: Completed infusion; IV Intake: 1000ml jb8 14:09 Drug: NS 0.9% 1000 ml Route: IV; Rate: 125 ml/hr; Site: left antecubital; jb8 16:11 Follow up: Response: No adverse reaction; IV Status: Infusion continued upon admission jb8 14:09 Drug: Rocephin 1 grams Route: IV; Rate: calculated rate; Site: left antecubital; jb8 16:10 Follow up: Response: No adverse reaction; IV Status: Completed infusion jb8 15:15 Drug: Gentamicin 240 mg Route: IVPB; Infused Over: 60 mins; Site: left antecubital; jb8 16:30 Follow up: Response: No adverse reaction; IV Status: Completed infusion ca1 16:06 Drug: NS 0.9% 1000 ml Route: IV; Rate: 1000 ml; Site: left antecubital; jb8 18:02 Follow up: Urine output 230 ml; Response: No adverse reaction; IV Status: Completed ca1 infusion; IV Intake: 1000ml 18:06 Drug: Ibuprofen 600 mg Route: PO; em 18:27 Follow up: Response: No adverse reaction; Temperature is decreased ca1 Disposition: 18:31 Co-signature as Attending Physician, Flakito Li MD. rn Disposition: 12/21/18 14:47 Hospitalization ordered by Rick Bahena for Inpatient Admission. Preliminary diagnosis is Acute prostatitis. - Bed requested for Telemetry/MedSurg (Inpatient). - Status is Inpatient Admission. ca1 - Condition is Stable. - Problem is new. - Symptoms have improved. UTI on Admission? Yes Signatures: Dispatcher [employer] Michelle Deal, RN Rakel Carrasquillo RN RN dw Edd, Cabrera, HIGH PRESSURE OPERATOR HIGH PRESSURE OPERATOR em Flakito Li MD MD rn Marinas, Patrick, FLEET MANAGER/DISPATCH FLEET MANAGER/DISPATCH pm1 Marina Kirk RN RN [facility] Alex Lui jb8 Corrections: (The following items were deleted from the chart) 17:28 14:47 Hospitalization Ordered by Rick Bahena MD for Inpatient Admission. dw Preliminary diagnosis is Acute prostatitis. Bed requested for Telemetry/MedSurg (Inpatient). Status is Inpatient Admission. Condition is Stable. Problem is new. Symptoms have improved. UTI on Admission? Yes. pm1 18:27 17:28 12/21/2018 14:47 Hospitalization Ordered by Rick Bahena MD for Inpatient ca1 Admission. Preliminary diagnosis is Acute prostatitis. Bed requested for Telemetry/MedSurg (Inpatient). Status is Inpatient Admission. Condition is Stable. Problem is new. Symptoms have improved. UTI on Admission? Yes. dw
--- NOTE | 2018-12-21 14:48 | ER ---
Nurse's Notes [facility] Name: Freddy Alexander Age: 68 yrs Sex: Male : 1950 Arrival Date: 12/21/2018 Time: : Bed 18 Private MD: Diagnosis: Acute prostatitis Presentation: 12/21 11:33 Presenting complaint: Patient states: had a prostate biopsy done and started sv having fever Sunday Tmax 102.8. Transition of care: patient was not received from another setting of care. Onset of symptoms was December 20, 2018. Risk Assessment: Do you want to hurt yourself or someone else? Patient reports no desire to harm self or others. Care prior to arrival: None. 11:33 Method Of Arrival: Ambulatory sv 11:33 Acuity: DEBRA 3 sv 12:22 Initial Sepsis Screen: Does the patient meet any 2 criteria? Temp <36.0*C (96.8*F)) or ca1 > 38.3*C (100.9*F). HR > 90 bpm. Yes Does the patient have a suspected source of infection? Yes: Other: Congestion. Historical: - Allergies: 11:35 No Known Allergies; sv - PMHx: 11:35 Diabetes - IDDM; Hypertension; sv - PSHx: 11:35 SPLEENECTOMY; sv - Immunization history:: Adult Immunizations up to date. - Social history:: Smoking status: Patient/guardian denies using tobacco. - Ebola Screening: : Patient negative for fever greater than or equal to 101.5 degrees Fahrenheit, and additional compatible Ebola Virus Disease symptoms Patient denies exposure to infectious person Patient denies travel to an Ebola-affected area in the 21 days before illness onset No symptoms or risks identified at this time. Screenin:57 Abuse screen: Denies threats or abuse. Denies injuries from another. Nutritional ca1 screening: No deficits noted. Tuberculosis screening: No symptoms or risk factors identified. Fall Risk IV access (20 points). Assessment: 11:57 General: Appears in no apparent distress. comfortable, Behavior is calm, cooperative, ca1 appropriate for age. General: Reports fever for 0-12 hours. Pain: Denies pain. Neuro: Level of Consciousness is awake, alert, obeys commands, Oriented to person, place, time, situation, Appropriate for age. Cardiovascular: Heart tones S1 S2 present Capillary refill < 3 seconds Patient's skin is warm and dry. Pulses are all present. Respiratory: Airway is patent Respiratory effort is even, unlabored, Respiratory pattern is regular, symmetrical, Breath sounds are clear bilaterally. GI: Abdomen is round non-distended, Bowel sounds present X 4 quads. Abd is soft and non tender X 4 quads. : Reports. EENT: No deficits noted. No signs and/or symptoms were reported regarding the EENT system. Derm: Skin is intact, is healthy with good turgor, Skin is pink, warm \T\ dry. Musculoskeletal: Circulation, motion, and sensation intact. Capillary refill < 3 seconds, Range of motion: intact in all extremities. 12:41 Reassessment: Patient appears in no apparent distress at this time. Patient and/or ca1 family updated on plan of care and expected duration. Pain level reassessed. Patient is alert, oriented x 3, equal unlabored respirations, skin warm/dry/pink. 12:46 Reassessment: LACTATE 2.7, provider notified, nurse notified. em 13:15 Reassessment: Patient appears in no apparent distress at this time. Patient and/or ca1 family updated on plan of care and expected duration. Pain level reassessed. Patient is alert, oriented x 3, equal unlabored respirations, skin warm/dry/pink. 14:14 Reassessment: Patient appears in no apparent distress at this time. Patient and/or jb8 family updated on plan of care and expected duration. Pain level reassessed. Patient is alert, oriented x 3, equal unlabored respirations, skin warm/dry/pink. 15:22 Reassessment: Patient appears in no apparent distress at this time. Patient and/or ca1 family updated on plan of care and expected duration. Pain level reassessed. Patient is alert, oriented x 3, equal unlabored respirations, skin warm/dry/pink. 15:23 Reassessment: LACTATE 4.6, provider notified. jb8 16:40 Reassessment: Patient appears in no apparent distress at this time. Patient and/or ca1 family updated on plan of care and expected duration. Pain level reassessed. Patient is alert, oriented x 3, equal unlabored respirations, skin warm/dry/pink. 17:47 Reassessment: Called for report. Nurse will call back. ca1 17:58 Reassessment: Patient appears in no apparent distress at this time. Patient and/or ca1 family updated on plan of care and expected duration. Pain level reassessed. Patient is alert, oriented x 3, equal unlabored respirations, skin warm/dry/pink. Vital Signs: 11:36 BP 156 / 88; Pulse 124; Resp 16; Temp 103.1(O); Pulse Ox 95% ; Weight 79.83 kg; Height sv 5 ft. 6 in. (167.64 cm); 12:41 BP 125 / 84; Pulse 118; Resp 16 S; Temp 100.4(O); Pulse Ox 97% on R/A; ca1 13:00 Temp 100; jb8 13:34 BP 125 / 84; Pulse 117; Resp 19; Pulse Ox 96% ; jb8 15:25 BP 126 / 76; Pulse 112; Resp 17 S; Temp 100(O); Pulse Ox 95% on R/A; ca1 16:55 BP 138 / 79; Pulse 113; Resp 18 S; Temp 99.8(O); Pulse Ox 96% on R/A; ca1 17:59 BP 138 / 88; Pulse 114; Resp 16 S; Temp 101.4(O); Pulse Ox 97% on R/A; ca1 11:36 Body Mass Index 28.41 (79.83 kg, 167.64 cm) sv ED Course: 11:26 Patient arrived in ED. jg7 11:34 Triage completed. sv 11:36 Arm band placed on. sv 11:42 Eduar Wilkinson NP is PHCP. pm1 11:42 Flakito Li MD is Attending Physician. pm1 11:57 Marina Kirk, CORINNE is Primary Nurse. ca1 11:57 Patient has correct armband on for positive identification. Bed in low position. Call ca1 light in reach. Side rails up X 1. Pulse ox on. NIBP on. 11:57 No provider procedures requiring assistance completed. ca1 12:01 Radiology exam delayed due to lab results not completed at this time. (BUN/Creatinine). bq 12:08 Inserted saline lock: 22 gauge in left antecubital area, using aseptic technique. Blood ca1 collected. 12:08 Initial lab(s) drawn, by me, sent to lab. First set of blood cultures drawn by me. ca1 12:30 Radiology exam delayed due to lab results not completed at this time. (BUN/Creatinine). kw1 12:50 Second set of blood cultures drawn by me. lt1 13:04 CT completed. Patient tolerated procedure well. bq 13:08 CT Abd/Pelvis - IV Contrast Only In Process Unspecified. EDMS 13:14 Chest Single View XRAY In Process Unspecified. EDMS 14:46 Rick Bahena MD is Hospitalizing Provider. pm1 18:01 Patient admitted, IV remains in place. ca1 Administered Medications: 12:05 Drug: Tylenol 1000 mg Route: PO; ca1 13:00 Follow up: Temp 100; Response: No adverse reaction; Temperature is decreased jb8 13:07 Follow up: Response: No adverse reaction; Temperature is decreased ca1 12:09 Drug: NS 0.9% 1000 ml Route: IV; Rate: 1000 ml; Site: left antecubital; ca1 13:00 Follow up: IV Status: Completed infusion; IV Intake: 1000ml jb8 14:09 Drug: NS 0.9% 1000 ml Route: IV; Rate: 125 ml/hr; Site: left antecubital; jb8 16:11 Follow up: Response: No adverse reaction; IV Status: Infusion continued upon admission jb8 14:09 Drug: Rocephin 1 grams Route: IV; Rate: calculated rate; Site: left antecubital; jb8 16:10 Follow up: Response: No adverse reaction; IV Status: Completed infusion jb8 15:15 Drug: Gentamicin 240 mg Route: IVPB; Infused Over: 60 mins; Site: left antecubital; jb8 16:30 Follow up: Response: No adverse reaction; IV Status: Completed infusion ca1 16:06 Drug: NS 0.9% 1000 ml Route: IV; Rate: 1000 ml; Site: left antecubital; jb8 18:02 Follow up: Urine output 230 ml; Response: No adverse reaction; IV Status: Completed ca1 infusion; IV Intake: 1000ml 18:06 Drug: Ibuprofen 600 mg Route: PO; em 18:27 Follow up: Response: No adverse reaction; Temperature is decreased ca1 Intake: 13:00 IV: 1000ml; Total: 1000ml. jb8 18:02 IV: 1000ml; Total: 2000ml. ca1 Output: 18:02 Urine: 230ml; Total: 230ml. ca1 Outcome: 14:47 Decision to Hospitalize by Provider. pm1 18:16 Admitted to Tele accompanied by tech, via wheelchair, room 416, with chart, Report ca1 called to CORINNE Talbert 18:16 Condition: stable 18:16 Instructed on the need for admit. 18:27 Patient left the ED. ca1 Signatures: Dispatcher [employer] Michelle Deal, CORINNE RN Suzanne Craig Edgar, VAT HOUSE SUPERVISOR VAT HOUSE SUPERVISOR Eduar Jameson, DISTRIBUTION TECH DISTRIBUTION TECH pm1 Zulema Muñiz kw1 Marina Kirk RN RN ca1 Heydi Edwards lt1 Paola Cantu7 Alex Lui8
[2018-12-21] MEDS ORDERED: Gentamicin Inj 240 MG in NA CHLORIDE 0.9% 100 ML IV ONE (15:00)
--- NOTE | 2018-12-21 15:51 | P.HP ---
Certification for Inpatient Patient admitted to: Observation With expected LOS: <2 Midnights Patient will require the following post-hospital care: None Practitioner: I am a practitioner with admitting privileges, knowledge of patient current condition, hospital course, and medical plan of care. Services: Services provided to patient in accordance with Admission requirements found in Title 42 Section 412.3 of the Code of Federal Regulations Patient History Date of Service: 12/22/18 (Hospitalist) Reason for admission: High fever and hematuria History of Present Illness: Patient is 68 years of age she recently underwent a prostate biopsy by Dr. Rollins on started complaining of hematuria and fever has a reason for admission Allergies No Known Allergies Allergy (Verified 02/06/18 08:29) Home Medications: Metformin HCl [Glucophage] 1,000 mg PO BID 04/12/13 Simvastatin [Zocor*] 40 mg PO DAILY 04/12/13 Fexofenadine HCl [Mona Allergy] 180 mg PO DAILY 09/26/17 Insuln Asp Prt/Insulin Aspart [Novolog Mix 70-30 Vial] 20 unit SQ BIDWM hydroCHLOROthiazide [Hydrochlorothiazide] 25 mg PO DAILY 09/26/17 Dulaglutide [Trulicity] 0.75 mg SQ EVERY 7TH DAY 05/08/18 Empagliflozin [Jardiance] 10 mg PO DAILY 05/08/18 Lisinopril 10 mg PO DAILY 05/14/18 Hydrocodone 7.5/APAP 325 [Caroline 7.5/325 mg*] 1 tab PO Q4H PRN #40 tab 05/16/18 Sulfamethoxazole/Trimethoprim [Sulfamethoxazole-Tmp Ds Tablet] 1 tab PO DAILY - Past Medical/Surgical History Diabetic: Yes -: Hypertension -: Diabetes mellitus type 2, insulin-dependent -: Osteoarthritis -: Hyperlipidemia -: Chronic allergic rhinitis -: History of splenectomy -: Splenectomy 1968 -: cholecystectomy 2014 -: left knee apa sep 2017 Psychosocial/ Personal History: Patient is . He has 3 children. 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 - Family History Mother -: Diabetes, Cancer Notes: father had enlarged heart, mother had skin cancer - Social History Alcohol use: Yes CD- Drugs: No Caffeine use: Yes Review of Systems 10-point ROS is otherwise unremarkable Physical Examination - Vital Signs Temperature: 103 F Blood Pressure: 138/88 Pulse: 118 Respirations: 16 Pulse Ox (%): 95 - Physical Exam General: Alert, Oriented x3 HEENT: Atraumatic Neck: Supple Respiratory: Clear to auscultation bilaterally Cardiovascular: No edema, Regular rate/rhythm Gastrointestinal: Normal bowel sounds, Soft and benign Musculoskeletal: No clubbing, No swelling - Studies Laboratory Data (last 24 hrs) 12/21/18 12:08: WBC 15.3 H, Hgb 16.4, Hct 47.4, Plt Count 302 12/21/18 12:08: Sodium 135 L, Potassium 3.8, BUN 14, Creatinine 1.28, Glucose 139 H, Total Bilirubin 2.5 H, AST 21, ALT 26, Alkaline Phosphatase 84 Microbiology Data (last 24 hrs): 12/21/18 12:08 Nasopharnyx Influenza Type A Antigen Screen - Final 12/21/18 12:08 Nasopharnyx Influenza Type B Antigen Screen - Final Assessment and Plan - Problems (Diagnosis) (1) Prostatitis, acute Current Visit: Yes Status: Acute Plan: Patient is 68 years of age admitted with high fever and hematuria recent prostatic biopsy hematuria confirmed by urinalysis prostate exam deferred admit for observation start on IV antibiotic resume home medications labs reviewed patient's prostate is enlarged and CT scan chest x-ray clear admit for observation Discharge Plan: Home Plan to discharge in: 24 Hours - Advance Directives Does patient have a Living Will: No Does patient have a Durable POA for Healthcare: No
[2018-12-21] MEDS ORDERED: IBUPROFEN 200 MG TAB PO ONE ×2 (18:02)
[2018-12-21 18:42] VITALS: BMI 28.4
[2018-12-21 23:47] VITALS: O2SAT 94
[2018-12-22] MEDS ORDERED: ACETAMINOPHEN 500 MG TAB PO ONE (05:21)
[2018-12-22] MEDS: NA CHLORIDE 0.9% 1,000 ML IV SCH ×2 (05:44→20:34)
[2018-12-22 06:31] LABS: Hematocrit 41.4 % (39.6-49.0); MPV 9.3 fL (7.6-11.3); RBC Red Blood Cell Count 4.55 M/uL (4.33-5.43)
[2018-12-22 06:38] LABS: Potassium 3.6 mmol/L (3.5-5.1)
[2018-12-22] MEDS: CEFTRIAXONE/SWI 1gm 1 GM/10 ML SYR IVP SCH ×2 (09:00→20:33)
[2018-12-22] MEDS ORDERED: CEFTRIAXONE/SWI 1gm 1 GM/10 ML SYR IVP SCH (09:00)
--- NOTE | 2018-12-22 10:36 | P.PN ---
Subjective Date of Service: 12/22/18 Chief Complaint: High fever and hematuria Subjective: Improving (Patient claims that he is doing better still has hematuria no pain fever) Review of Systems Unremarkable Physical Examination - Vital Signs Temperature: 99.0 F Blood Pressure: 100/62 Pulse: 87 Respirations: 18 Pulse Ox (%): 93 - Physical Exam General: Alert, Oriented x3 Respiratory: Clear to auscultation bilaterally Cardiovascular: No edema Gastrointestinal: Normal bowel sounds - Studies Laboratory Data (last 24 hrs) 12/21/18 12:08: WBC 15.3 H, Hgb 16.4, Hct 47.4, Plt Count 302 12/21/18 12:08: Sodium 135 L, Potassium 3.8, BUN 14, Creatinine 1.28, Glucose 139 H, Total Bilirubin 2.5 H, AST 21, ALT 26, Alkaline Phosphatase 84 Microbiology Data (last 24 hrs): 12/21/18 12:08 Nasopharnyx Influenza Type A Antigen Screen - Final 12/21/18 12:08 Nasopharnyx Influenza Type B Antigen Screen - Final Assessment & Plan - Problems (Diagnosis) (1) Prostatitis, acute Current Visit: Yes Status: Acute Plan: Patient is 68 years of age admitted with prostatitis falling biopsy urinalysis shows 3+ gram-negative rods patient is on antibiotics as per Dr. Rollins white count is mildly elevated he was still having some fever patient is on 3 antibiotics and wait for cultures still having some hematuria otherwise is stable eating drinking no pain
[2018-12-22] MEDS: AMPICILLIN SODIUM 1 GM in NA CHLORIDE 0.9% 100 ML IVPB SCH ×3 (11:43→23:53)
[2018-12-22] MEDS: METRONIDAZOLE 500mg IVPB 500 MG/100 ML BAG IV SCH ×3 (11:44→23:52)
[2018-12-22] MEDS ORDERED: AMPICILLIN SODIUM 1 GM/VIAL IVPB SCH (12:00)
[2018-12-22] MEDS: ACETAMINOPHEN 325 MG TABLET PO PRN ×2 (13:42→20:33)
[2018-12-22] MEDS ORDERED: D50W 25 GM/50 ML SYRINGE IV PRN (14:17)
[2018-12-22] MEDS ORDERED: GLUCAGON 1 MG/VIAL IM PRN (14:17)
[2018-12-22] MEDS: INSULIN -REGULAR HUMAN 50 UNIT/0.5 ML ML SQ SCH ×2 (16:16→21:00)
[2018-12-22] MEDS: METFORMIN HCL 500 MG TAB PO SCH (16:18)
[2018-12-22] MEDS: HUMALOG MIX 75/25 100 UNITS/ML SQ SCH (16:19)
[2018-12-22] MEDS ORDERED: INSULIN ASPART SQ SCH (17:00)
[2018-12-22] MEDS ORDERED: INSULN ASP PRT SQ SCH (17:00)
[2018-12-22] MEDS: LISINOPRIL 10 MG TAB PO SCH (18:18)
[2018-12-22] MEDS: hydroCHLOROthiazide 25 MG TAB PO SCH (18:18)
[2018-12-22] MEDS ORDERED: HOME MED 1 EA UNK (Metformin Hcl [Glucophage] 1,000 MG) PO SCH (21:00)
[2018-12-23] MEDS: ACETAMINOPHEN 325 MG TABLET PO PRN ×2 (02:20→09:26)
[2018-12-23] MEDS ORDERED: METOPROLOL TAR 25 MG TAB PO SCH (06:00)
[2018-12-23 06:04] LABS: Absolute Lymphocytes (CBC) 1.5 K/uL (0.7-4.9); Basophils % 0.3 % (0-1.3); Hematocrit 39.7 % (39.6-49.0); Lymphocytes % 14.5 % (15.3-44.8); MPV 8.7 fL (7.6-11.3)
[2018-12-23] MEDS: AMPICILLIN SODIUM 1 GM in NA CHLORIDE 0.9% 100 ML IVPB SCH (06:04)
[2018-12-23] MEDS: METRONIDAZOLE 500mg IVPB 500 MG/100 ML BAG IV SCH (06:07)
[2018-12-23 06:15] LABS: Potassium 3.1 mmol/L (3.5-5.1)
[2018-12-23] MEDS: INSULIN -REGULAR HUMAN 50 UNIT/0.5 ML ML SQ SCH (07:30)
[2018-12-23] MEDS ORDERED: POTASSIUM 25 MEQ EFFERV TAB PO ONE (07:41)
[2018-12-23] MEDS ORDERED: Levofloxacin500mg IV 500 MG/100 ML BAG IV SCH (08:00)
[2018-12-23] MEDS: HUMALOG MIX 75/25 100 UNITS/ML SQ SCH (08:00)
[2018-12-23] MEDS ORDERED: DULAGLUTIDE 1.5 MG/0.5 ML SQ SCH (09:00)
[2018-12-23] MEDS ORDERED: LISINOPRIL 10 MG TAB PO SCH (09:00)
[2018-12-23] MEDS ORDERED: EMPAGLIFLOZIN 10 MG PO SCH (09:00)
[2018-12-23] MEDS ORDERED: hydroCHLOROthiazide 25 MG TAB PO SCH (09:00)
[2018-12-23] MEDS: METFORMIN HCL 500 MG TAB PO SCH (09:25)
[2018-12-23] MEDS: hydroCHLOROthiazide 25 MG TAB PO SCH (09:26)
[2018-12-23] MEDS: LISINOPRIL 10 MG TAB PO SCH (09:26)
--- NOTE | 2018-12-23 10:39 | P.PN ---
Subjective Date of Service: 12/23/18 Primary Care Provider: Dr. Gordon Calderon Chief Complaint: High fever and hematuria Subjective: Improving Physical Examination - Vital Signs Temperature: 98.2 F Blood Pressure: 121/73 Pulse: 75 Respirations: 18 Pulse Ox (%): 95 - Physical Exam General: Alert, In no apparent distress, Oriented x3, Cooperative HEENT: Atraumatic Neck: Supple Respiratory: Clear to auscultation bilaterally, Normal air movement Cardiovascular: Normal pulses, Regular rate/rhythm Gastrointestinal: Normal bowel sounds, Soft and benign, Non-distended, No tenderness, No masses, No rebound, No guarding Musculoskeletal: No erythema, No tenderness, No warmth Integumentary: No tenderness/swelling, No erythema, No warmth, No cyanosis Neurological: Normal speech, Normal strength at 5/5 x4 extr, Normal tone, Normal affect - Studies Microbiology Data (last 24 hrs): 12/21/18 13:02 Clean Catch Urine [place] Count - Final BETWEEN 10,000 & 100,000 CFU/ML 12/21/18 13:02 Clean Catch Urine - Final Escherichia Coli Medications List Reviewed: Yes Assessment & Plan Discharge Plan: Home Plan to discharge in: 24 Hours Physician Review Additional Text: Impression: Acute prostatitis, urine culture positive for E coli Diabetes mellitus type 2 insulin-dependent Hypertension Hypokalemia Plan: Acute prostatitis, urine culture positive for E coli: Antibiotics have been adjusted to IV Levaquin. Patient has been without fever since 8:00 p.m. last night. Will discuss with urology about the possibility of discharge within the next 24 hr. Possible discharge may occur later today. If the patient remains 1 more day then I will turn the service over to Dr. Yan tomorrow. I will go over the plan of care with her. Diabetes mellitus type 2 insulin-dependent: Continue with medication. Will monitor and adjust appropriately. Hypertension: Continue with medication. Will monitor and adjust appropriately. Hypokalemia: Will continue with electrolyte protocol replacement. Time Spent Managing Pts Care (In Minutes): 55
--- NOTE | 2018-12-23 12:42 | CON ---
History Of Present Illness: A 68-year-old gentleman who had a history of elevated PSA. Last one was 5.9 on 12/05/2018. However, his 4K was 44% indicating he have a 44% chance of having Joe 7 cancer higher. Therefore, biopsy was recommended and done 3 days ago. He had a stool culture previously that showed E coli and was essentially sensitive to the antibiotics that he got. So, he was on Bactrim at home; however, this was not working. Started with some high fever up to 103.8, when he came to the ER. Therefore, he was admitted for IV antibiotics. He got a dose of gentamicin IV and also Rocephin as schedule. Admit him for a day or two and see how he does and urine culture was sent and that is pending. Past Medical History: Diabetes, hypertension. Past Surgeries: Splenectomy, cholecystectomy, knee replacement. Family History: Father has enlarged heart. Mother had diabetes, epilepsy. Immunizations: Up to date. Home Medications: Metformin, NovoLog, lisinopril, multivitamin, fish oil, _. Allergies: NO KNOWN DRUG ALLERGIES. Review of Systems: As mentioned above. Physical Examination: Vital Signs: Temperature 101.4 done at 6:36 p.m., pulse 114, respiratory rate 16, blood pressure 138/88, saturations 97% on room air. General: Patient is well-nourished, well-hydrated, in no acute distress. Neck: Supple. Cardiovascular: Normal S1, S2. Regular rate and rhythm. Respiratory: Clear. Gastrointestinal: Soft, nontender. Genitourinary: Both testicles descended. Phallus normal. STACI: Deferred secondary to acute prostatitis on going on _. Laboratory Data: White count elevated at 15.5, H and H 16.4 and 47.4, platelet count 302. Chemistry shows elevated lactic acid at 4.6. Electrolytes: Sodium 135, potassium 3.8, chloride 99, carbon dioxide 28, BUN 14, creatinine 1.28, GFR 56. Urine showed 3+ blood, nitrite negative, rbc's greater than 50, white cells 20-50, bacteria less than 20, urine cx done. Assessment And Plan: Acute prostatitis, status post ultrasound biopsy of the prostate 3 days out. Patient was on Bactrim at home that the E coli was sensitive to, but obviously not working for him. So, he was admitted for IV antibiotics that is a dose of gentamicin x1. He is on Rocephin around-the- clock. We will await for urine culture to come back, hopefully results will be back in a few days. NANCI Voice ID: [id number] Report ID: [id number] MIRNA
--- NOTE | 2018-12-23 14:18 | PN ---
Date of Progress Note: 12/22/2018 Subjective: Patient is feeling well. Objective: Patient is still spiking fevers. White count was still mildly elevated. Assessment: Acute prostatitis. Plan: We are going to add ampicillin for more gram-positive coverage, on Flagyl IV for more anaerobi c coverage. Continues Rocephin 1 g IV q.12 while cultures were pending from his urine. PB/MODL Voice ID: [id number] Report ID: [id number]
--- NOTE | 2018-12-23 15:53 | P.DS ---
Admission Date: 12/21/18 Discharge Date: 12/23/18 Primary Care Provider: Dr. Gordon Calderon Disposition: ROUTINE DISCHARGE Discharge Condition: GOOD Reason for Admission: High fever and hematuria Consultations: Urology-Dr. Rollins Procedures: CT Scan: FINDINGS: The liver, pancreas, adrenal and kidneys appear unremarkable. Splenectomy. Cholecystectomy The prostate gland is moderately to markedly enlarged. The wall of the bladder is thickened. Small right inguinal hernia contains fat There is no evidence of diverticulitis. Normal appendix IMPRESSION: Moderate to marked prostatic enlargement. Thickened bladder wall may be secondary to a chronic bladder outlet obstruction Medical Problem list: Acute prostatitis, urine culture positive for E coli, status post ultrasound guided biopsy of prostate Diabetes mellitus type 2 insulin-dependent Hypertension Hypokalemia BPH Brief History of Present Illness: 68-year-old male with history of diabetes, hypertension, and elevated PSA. Patient was seen by Urology recently. 3 days prior to admission the patient had a biopsy of his prostate. Patient came to the ER with increased fever. Patient was started on IV antibiotic therapy. Urine culture obtained. Hospital Course: Patient presented with acute prostatitis after recent biopsy of his prostate. Patient was admitted and started on IV antibiotic therapy. Patient was seen and evaluated by urology. Urine culture was obtained. Urine culture was positive for E coli. At discharge she will continue with Levaquin 500 mg daily for 14 days. Recommend follow up with urology in 1-2 weeks. Recommend to recheck urine culture after that time. Patient with diabetes mellitus type 2 insulin dependent. This has remained stable. Will recommend to discontinue Jardiance as this will increase risk of UTI/sepsis. Patient may continue with Trulicity, metformin, and insulin 70/30 at discharge. Recommend to monitor blood sugars at least twice daily. Insulin may need to be adjusted if blood sugar remains above 200 consistently. This can be done with the help of his PCP. Patient with hypertension. At discharge he will continue with his medication of lisinopril and hydrochlorothiazide. Recommend to maintain blood pressures less 150/80. Further adjustment can be done by his PCP. Patient with hyperlipidemia. At discharge patient may continue with Zocor 40 mg daily. Vital Signs/Physical Exam: Temp Pulse Resp BP Pulse Ox 98.8 F 78 18 97/63 95 12/23/18 12:00 12/23/18 12:00 12/23/18 12:00 12/23/18 12:00 12/23/18 12:00 General: Alert, In no apparent distress, Oriented x3, Cooperative HEENT: Atraumatic Neck: Supple Respiratory: Clear to auscultation bilaterally, Normal air movement Cardiovascular: Normal pulses, Regular rate/rhythm Gastrointestinal: Normal bowel sounds, Soft and benign, Non-distended, No tenderness, No masses, No rebound, No guarding Musculoskeletal: No erythema, No tenderness, No warmth Integumentary: No tenderness/swelling, No erythema, No warmth, No cyanosis Neurological: Normal speech, Normal strength at 5/5 x4 extr, Normal tone, Normal affect Laboratory Data at Discharge: WBC 10.6 K/uL (4.3-10.9) D 12/23/18 05:40 Hgb 14.1 g/dL (13.6-17.9) 12/23/18 05:40 Hct 39.7 % (39.6-49.0) 12/23/18 05:40 Plt Count 230 K/uL (152-406) 12/23/18 05:40 Sodium 134 mmol/L (136-145) L 12/23/18 05:40 Potassium 3.1 mmol/L (3.5-5.1) L 12/23/18 05:40 BUN 12 mg/dL (7-18) 12/23/18 05:40 Creatinine 0.92 mg/dL (0.55-1.3) 12/23/18 05:40 Glucose 169 mg/dL (74-106) H 12/23/18 05:40 Magnesium 2.0 mg/dL (1.8-2.4) 12/23/18 05:40 Total Bilirubin 2.5 mg/dL (0.2-1.0) H 12/21/18 12:08 AST 21 U/L (15-37) 12/21/18 12:08 ALT 26 U/L (12-78) 12/21/18 12:08 Alkaline Phosphatase 84 U/L (45-117) 12/21/18 12:08 Home Medications: Metformin HCl [Glucophage] 1,000 mg PO BID 04/12/13 Simvastatin [Zocor*] 40 mg PO DAILY 04/12/13 Fexofenadine HCl [Mona Allergy] 180 mg PO DAILY 09/26/17 Insuln Asp Prt/Insulin Aspart [Novolog Mix 70-30 Vial] 20 unit SQ BIDWM hydroCHLOROthiazide [Hydrochlorothiazide] 25 mg PO DAILY 09/26/17 Dulaglutide [Trulicity] 0.75 mg SQ EVERY 7TH DAY 05/08/18 Lisinopril 10 mg PO DAILY 05/14/18 Hydrocodone 7.5/APAP 325 [[place] 7.5/325 mg*] 1 tab PO Q4H PRN #40 tab 05/16/18 levoFLOXacin [Levaquin] 500 mg PO DAILY 14 Days #14 tab 12/23/18 New Medications: levoFLOXacin [Levaquin] 500 mg PO DAILY 14 Days #14 tab Patient Discharge Instructions: 1. Recommend follow up with his PCP in 1-2 weeks to follow up this hospitalization. 2. Patient presented with acute prostatitis after recent biopsy of his prostate. Patient was admitted and started on IV antibiotic therapy. Patient was seen and evaluated by urology. Urine culture was obtained. Urine culture was positive for E coli. At discharge she will continue with Levaquin 500 mg daily for 14 days. Recommend follow up with urology in 1-2 weeks. Recommend to recheck urine culture after that time. Patient with diabetes mellitus type 2 insulin dependent. This has remained stable. Will recommend to discontinue Jardiance as this will increase risk of UTI/sepsis. Patient may continue with Trulicity, metformin, and insulin 70/30 at discharge. Recommend to monitor blood sugars at least twice daily. Insulin may need to be adjusted if blood sugar remains above 200 consistently. This can be done with the help of his PCP. 3. Patient with hypertension. At discharge he will continue with his medication of lisinopril and hydrochlorothiazide. Recommend to maintain blood pressures less 150/80. Further adjustment can be done by his PCP. 4. Patient with hyperlipidemia. At discharge patient may continue with Zocor 40 mg daily. Diet: ADA Activity: Ad darrel Time spent managing pt's care (in minutes): 55
[2018-12-23 16:47] VITALS: BP 117/65; TEMP 98.2
[2018-12-23] MEDS ORDERED: ENOXAPARIN 40 MG/0.4 ML SQ SCH (17:00)
--- NOTE | 2018-12-23 21:51 | PN ---
Patient has prostatitis status post prostate biopsy. The E coli he grew from his rectum was sensitive to Bactrim. Now, he has grown a new E Coli that has a different sensitivity, has resistance to Bactrim, sensitive to _, Augmentin, Levaquin, ciprofloxacin, and meropenem. We will send him home on 14 days of Levaquin. He has been informed to follow up with me later on this Sunday in the office that is in 4 days. RYAN/YENI Voice ID: [id number] Report ID: [id number] MTDD
--- OUTSIDE RECORDS SUMMARY | 2019-01-05 11:49 | XMS REPORT ---
:1950 Author Organization [employer] Care Team Providers Name Role Phone Dima Talamantes Provider Role Unavailable Allergies, Adverse Reactions, Alerts Substance Reaction Event Type N.K.D.A. 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 Active knee Assessment Left sciatic nerve pain M54.32 Active Assessment Presence of left artificial knee Z96.652 Active joint Assessment Pain, joint, knee, left M25.562 Active Problem Aftercare following joint Z47.1 Active replacement surgery Problem Presence of left artificial knee Z96.652 Active joint Problem Left sciatic nerve pain M54.32 Active Problem Unilateral primary osteoarthritis, M17.12 Active left knee Problem Complex tear of medial meniscus of S83.232D Active left knee as current injury, subsequent encounter Problem 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 26069071709 25 MG Orally Active 1 tablet Once a day in the morning Trulicity [facility] [address]-15 Active not defined Lisinopril [facility] 46400913891 10 MG Orally Active 1 tablet Once a day Novolin 70/[address] [facility] 77850592237 (70-30) 100 Active as UNIT/ML directed Subcutaneous Jardiance [facility] [address]-79 Active not defined Tramadol HCl ND 38394811710 50 MG Orally 27 May Active as PO Q 4-6 HRS , directed PRN PAIN [address] [facility] 47376450855 40 MG Orally Active 1 tablet Once a day in the evening Metformin HCl [facility] 83827730084 500 MG Orally Active 1 tablet Once a day with a meal Results No Known Results Summary Purpose [employer] Submission
== END 2018-12-23 19:00 | disposition home or self-care (01) | DRG 728 ==
LOC: SUPCPDRO 11:22 → ER 11:22 → ERHOLD 16:42 → 4TH 18:16
PROVIDERS: ADMIT Internal Medicine Sleep Medicine; ATTEND Internal Medicine Sleep Medicine
DX: N41.0 Acute prostatitis (principal); B96.20 Unspecified Escherichia coli [E. coli] as the cause of diseases classified elsewhere; E11.9 Type 2 diabetes mellitus without complications; I10 Essential (primary) hypertension; E87.6 Hypokalemia; N40.0 Benign prostatic hyperplasia without lower urinary tract symptoms; E78.5 Hyperlipidemia, unspecified
CPT/HCPCS: 36415; 71045; 74177; 80048; 80076; 81003; 81015; 82565; 82947; 83605; 83735; 84145; 84520; 85025; 85027; 87040; 87077; 87086; 87088; 87186; 87804; 96361; 96365; 96366; 96368; 99285; J0290; J0696; J1580; J1815; J7030; Q9967

== ENCOUNTER 2022-10-13 18:27 | Emergency (ER) | payer OTHER ==
--- OUTSIDE RECORDS SUMMARY | 2022-10-13 18:32 | XMS REPORT | Continuity of Care Document ---
:1950 Author Organization [facility] t Address [address] [place] [address] Care Team Providers Name Role Phone JosyShahriar Esteban Attending Clinician Problems Condition Condition Condition Status Onset Resolution Last Treating Co mments Source Name Details Category Date Date Treatment Clinician Date [id number] Diagnosis Active 2018-022019-02-10 Memoria 71--MALIGN [id number]--MALIG 03-10 09:41:00 l ANT NANT 00:00: Myles NEOPLASM NEOPLASM 00 OF PROS OF PROS Active 01/08/2019 [facility] C61 - C61 - Diagnosis Active 2018-022019-02-10 Mem oria MALIGNANT MALIGNANT 03-05 09:41:00 l NEOPLASM NEOPLASM 00:01: Byron n 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 01/03/2019 [facility] SHERIDAN [place] [id number] Complex Problem Active Commo n tear of Spirit medial - [facility] meniscus [facility] of left Lu knee [facility] injury, subsequent encounter [id number] 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, left [facility] [id number] Left Problem Active Common sciatic Spirit nerve pain - [facility] [id number] Effusion Problem Active Comm on of left Spirit knee joint - [facility] [id number] Primary Problem Active Comm on osteoarthr Spirit itis of - [facility] right knee [facility] [id number] Pain, Problem Active Common joint, Spirit knee, left - [facility] [id number] Villonodul Problem Active Co mmon ar Spirit synovitis - [facility] of left [facility] knee [facility] [id number] Presence Problem Active 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 - [facility] knee joint [facility] [id number] Aftercare Problem Active Com mon following Spirit joint - [facility] replacemen [facility] t [facility] Diabetes Diabetes Problem Active 2019-05-31 Memoria mellitus mellitus 21:16:41 l (disorder) (disorder) He rmann Active Problem 05/31/2019 Medical Group,[facility] Hypertensi Hypertens Problem Active 2019-05-31 Memoria ve angelita 21:16:41 l disorder, disorder, Herm claudia systemic systemic arterial arterial (disorder) (disorder) Active Problem 05/31/2019 [facility] Malignant Problem Active 2019-05-31 Me moria tumor of Malignant 21:16:41 l prostate tumor of Byron n (disorder) prostate (disorder) Active Problem 05/31/2019 Medical Group,[facility] Outpatient Imaging [place]hr^^^^^^ ^^^[id number] ,[facility] Ra[facility] Raised Problem Active 2019-05-31 Bryant félix prostate prostate 21:16:41 l specific specific Byron n antigen antigen (finding) (finding) Active Problem 05/31/2019 [facility] Outpatient Imaging [place]^^^^^^ ^^^[id number] ,[facility] Allergies, Adverse Reactions, Alerts Allergy Allergy Status Severity Reaction(s) Onset Inactive Treating Comm ents Source Name Type Date Date Clinician No Known No Known Active Memori a Medicati Medicati l on on [place] Allergie Allergie s s penicill penicill Active Unknown Commo n in V in V Spirit [facility] aspirin aspirin Active Unknown Common Spirit [facility] bacitrac bacitrac Active Unknown Commo n in in Spirit [facility] Social History Social Habit Start Date Stop Date Quantity Comments Source History of Tobacco Common Spirit - Use [facility] Sex Assigned At Common Sp tami - [facility] Social History 2019-01-20 2019-01-20 Sagrario lovelace 16:21:13 16:21:13 Smoking Status Start Date Stop Date Source Never Smoker [facility] Medications Ordered Filled Start Stop Current Ordering Indication Dosage Frequency Signature Comments Components Source Medication Medication Date Date Medication? Clinician (SIG) Name Name Hyalgan 20 Hyalgan 20 2021-0 No 20mg C ommon mg mg 830 Spirit 00:00: - [facility] Hyalgan 20 Hyalgan 20 2021-0 No 20mg C ommon mg mg 8- Spirit 00:00: - [facility] Hyalgan 20 Hyalgan 20 2021-0 No 20mg C ommon mg mg 8-23 Spirit 00:00: - [facility] Bupivicaine Bupivicaine 2021-0 No 25mg Common Ethridge Ethridge 8-16 Spirit 00:00: - [facility] Hyalgan 20 Hyalgan 20 2021-0 No 20mg C ommon mg mg 8-16 Spirit 00:00: - [facility] Kenalog Kenalog 2021-0 No 40mg Common (Triamcinol (Triamcinol 8-16 S pirit one) one) 00:00: - [facility] Bupivicaine Bupivicaine 2021-0 No 25mg Common Ethridge Ethridge 8-16 Spirit 00:00: - [facility] Hyalgan 20 Hyalgan 20 2021-0 No 20mg C ommon mg mg 8-16 Spirit 00:00: - [facility] Kenalog Kenalog 2021-0 No 40mg Common (Triamcinol (Triamcinol 8-16 S pirit one) one) 00:00: - [facility] Bupivicaine Bupivicaine 2021-0 No 25mg Common Ethridge Ethridge 8-16 Spirit 00:00: - [facility] Hyalgan 20 Hyalgan 20 2021-0 No 20mg C ommon mg mg 8-16 Spirit 00:00: - [facility] Kenalog Kenalog 2021-0 No 40mg Common (Triamcinol (Triamcinol 8-16 S pirit one) one) 00:00: - [facility] 00 [facility] Bupivicaine Bupivicaine 2-0 No 2.5mg Common Ethridge Ethridge 4-18 Spirit 00:00: - [facility] 00 [facility] Kenalog Kenalog 2021-0 No 40mg Common (Triamcinol (Triamcinol 4-18 S pirit one) one) 00:00: - [facility] 00 [facility] Bupivicaine Bupivicaine 2021-0 No 2.5mg Common Ethridge Ethridge 4-18 Spirit 00:00: - [facility] 00 [facility] Kenalog Kenalog 2021-0 No 40mg Common (Triamcinol (Triamcinol 4-18 S pirit one) one) 00:00: - [facility] 00 [facility] Bupivicaine Bupivicaine 2021-0 No 2.5mg Common Ethridge Ethridge 4-18 Spirit 00:00: - [facility] 00 [facility] Kenalog Kenalog 2021-0 No 40mg Common (Triamcinol (Triamcinol 4-18 S pirit one) one) 00:00: - [facility] 00 [facility] Bupivicaine Bupivicaine 2021-0 No 2.5mg Common Ethridge Ethridge 4-18 Spirit 00:00: - [facility] 00 [facility] Kenalog Kenalog 2021-0 No 40mg Common (Triamcinol (Triamcinol 4-18 S pirit one) one) 00:00: - [facility] 00 [facility] Bupivicaine Bupivicaine 2-0 No 2.5mg Common Ethridge Ethridge 4-18 Spirit 00:00: - [facility] 00 [facility] Kenalog Kenalog 2-0 No 40mg Common (Triamcinol (Triamcinol 4-18 S pirit one) one) 00:00: - [facility] 00 [facility] Bupivicaine Bupivicaine 2-0 No 2.5mg Common Ethridge Ethridge 4-18 Spirit 00:00: - [facility] 00 [facility] Kenalog Kenalog 2-0 No 40mg Common (Triamcinol (Triamcinol 4-18 S pirit one) one) 00:00: - [facility] 00 [facility] pantoprazol 2018-02 No Notes: Bryant félix e 2-07 Tablet l 15:00: should not Myles 00 be chewed or crushed. (Same as: Protonix) Hydrochloro 2018-02 No Notes: Bryant félix thiazide 2-07 (Same as: l 15:00: Hydrodiuri [place] 00 l) With food. Lisinopril 2018-02 No Notes: Memor ia 2-07 (Same as: l 15:00: Prinivil, [place] Zestril) Simvastatin 2018-02 No Notes: Bryant félix 2-07 (Same as: l 03:00: Zocor) [place] Docusate 2018-02 No Notes: Memoria 2-06 (Same as: l 23:00: Colace) Myles 00 (Do Not Crush) tramadol 2018-02 Yes 50 mg = 1 Bryant félix hydrochlori 2-06 tab, PO, l de 50 MG 21:14: Q6H, PRN Monica nn Oral Tablet 00 Pain, X 10 day, # 40 tab, 0 Refill(s) Docusate 2018-02 Yes 100 mg = 1 Mem oria Sodium 100 2-06 cap, PO, l MG Oral 21:14: BID, PRN Byron n Capsule 00 Constipati [Colace] on, # 60 cap, 0 Refill(s), Pharmacy: [id number] Ciprofloxac 2018-02 No 500 mg = 1 Memoria in 500 MG 2-06 tab, PO, l Oral Tablet 21:14: Q12H, Monica nn [Cipro] 00 start 1 day prior to catheter remova, X 3 day, # 6 tab, 0 Refill(s), Pharmacy: [id number] Dextrose 2018-02 No 12.5 gm, Memor ia 50% Syringe 2-06 25 mL, l (D50W) 21:13: Route: [place] 00 IVP, Drug Form: INJ, Dosing Weight 74.008, kg, PRN, PRN Blood Glucose Results, Start date: 01/31/19 15:13:00 MANAGER SOUND, Duration: 30 day, Stop date: 03/02/19 15:12:00 MANAGER SOUND, 0 Glucagon 2018-02 No 1 mg, Memoria 2-06 Route: IM, l 21:13: Drug form: Myles 00 PDR/INJ, PRN, Dosing Weight 74.008, kg, PRN Blood Glucose Results, Start date: 01/31/19 15:13:00 MANAGER SOUND, Duration: 30 day, Stop date: 03/02/19 15:12:00 MANAGER SOUND, 0 Insulin 2018- No Notes: Memoria regular 2-06 (Same as: l 21:13: Humulin R) Myles 00 Roll in palms of hands gently; Do not shake vigorously . WASTE: F/P - Black; E - Municipal Trash Bin Stable for 31 days at room temperatur e Expires in days from ____Date 02/27 NS 2018-02 No 1,000 mL, Memori a 1,000 mL 2- Rate: 125 l 21:12: ml/hr, Infuse over: 8 hr, Route: IV, Dosing Weight 74.008 kg, Total Volume: 1,000, Start date: 01/31/19 15:12:00 MANAGER SOUND, Duration: 30 day, Stop date: 03/02/19 15:11:00 MANAGER SOUND, 1.86, m2, 0 Acetaminoph 2018- No Notes: Bryant félix en 2-06 Infuse l 20:00: over 15 minutes Do not exceed 4gm/day of acetaminop hen MEDICATION WASTE Product Size: 1000 mg Product Wasted: ___ mg Insulin 2018- No 3 unit, Memoria regular 2- Route: IV, l 19:23: ONCE, [place] 00 Dosing Weight 74.008, kg, Start date: 01/31/19 13:23:00 MANAGER SOUND, Stop date: 01/31/19 13:23:00 MANAGER SOUND Regular 2018- No 3 unit, Memoria Insulin, 2-06 Route: IV, l Human 100 18:38: ONCE, Myles /ML 00 Dosing Injectable Weight Solution 74.008, kg, Start date: 01/31/19 12:38:00 MANAGER SOUND, Stop date: 01/31/19 12:38:00 MANAGER SOUND Insulin 2018- No 4 unit, Memoria regular 2- Route: IV, l 17:59: ONCE, [place] Dosing Weight 74.008, kg, Start date: 01/31/19 11:59:00 MANAGER SOUND, Stop date: 01/31/19 11:59:00 MANAGER SOUND glycopyrrol 2018-02 No Route: IV, Memoria ate (ANES) 2- Drug form: l 17:16: INJ, ONCE, Stop date: 01/31/19 11:16:00 MANAGER SOUND neostigmine 2018-02 No Route: IV, Memoria (ANES) 2-06 Drug form: l 17:16: INJ, ONCE, Stop date: 01/31/19 11:16:00 MANAGER SOUND Belladonna 2018-02 No Notes: Memor ia Alkaloids 2-06 (Same As: l 16.2 MG / 17:05: B & O Supp He rmann Opium 30 MG 00 15A) Rectal Suppository oxybutynin 2018-02 No Notes: Memor ia 2-06 Same as: l 17:05: Ditropan) Acetaminoph 2018-02 No Notes: Bryant félix en 325 MG / 2-06 (Same as: l Hydrocodone 17:05: Biola Monica nn Bitartrate 00 325/5) Do 5 MG Oral not exceed Tablet 4gm/day of [Biola acetaminop 5/325] hen. Dextrose 5% 2018-02 No 1,000 mL, M emoria with 0.45% 2-06 Rate: 125 l NaCl IV 17:05: ml/hr, [place] 1,000 mL 00 Infuse over: 8 hr, Route: IV, Dosing Weight 74.008 kg, Total Volume: 1,000, Start date: 01/31/19 11:05:00 MANAGER SOUND, Duration: 30 day, Stop date: 03/02/19 11:04:00 MANAGER SOUND, 1.86, m2, 0 Saline 2018-02 No Notes: Memoria Flush 0.9% 2-06 preservati l 17:05: ve free. Tramadol 2018-02 No Notes: Not Mem oria 2-06 to exceed l 17:05: 400mg/day. Myles 00 (Same As: Ultram) Morphine 2018-02 No Notes: Memoria 2-06 (Same l 17:05: as:MORPhin Myles e Sulfate) Naloxone 2018-02 No Notes: Memoria 2-06 Same as l 17:05: Narcan Ondansetron 2018-02 No Notes: Bryant félix 2-06 (Same as: l 17:05: Zofran) MEDICATION WASTE Product Size: 4 mg Product Wasted: ___ mg calcium 2018-02 No Route: IV, Bryant félix chloride 2- Drug form: l (ANES) 15:34: INJ, ONCE, Monica Stop date: 01/31/19 9:34:00 MANAGER SOUND midazolam 2018-02 No Route: IV, Me moria (ANES) 2- Drug form: l 14:53: SOLN, [place] 00 ONCE, Stop date: 01/31/19 8:53:00 MANAGER SOUND fentaNYL 2018-02 No Route: IV, Mem oria (ANES) 2- Drug form: l 14:53: INJ, ONCE, Stop date: 01/31/19 8:53:00 MANAGER SOUND lidocaine 2018-02 No Route: IV, Me moria (ANES) 2- Drug form: l 14:53: INJ, ONCE, Stop date: 01/31/19 8:53:00 MANAGER SOUND propofol 2018-02 No Route: IV, Mem oria (ANES) 2- Drug form: l 14:53: INJ, ONCE, Stop date: 01/31/19 8:53:00 MANAGER SOUND rocuronium 2018-02 No Route: IV, M emoria (ANES) 2- Drug form: l 14:53: INJ, ONCE, Stop date: 01/31/19 8:53:00 MANAGER SOUND ondansetron 2018-02 No Route: IV, Memoria (ANES) 2- Drug form: l 14:53: INJ, ONCE, Stop date: 01/31/19 8:53:00 MANAGER SOUND dexamethaso 2018-02 No Route: IV, Memoria ne (ANES) 2- Drug form: l 14:53: INJ, ONCE, Stop date: 01/31/19 8:53:00 MANAGER SOUND famotidine 2018-02 No Route: IV, M emoria (ANES) 2- Drug form: l 14:28: INJ, ONCE, Stop date: 01/31/19 8:28:00 MANAGER SOUND ceFAZolin 2018-02 No Route: IV, Me moria (ANES) 2-06 Drug form: l 14:28: INJ, ONCE, Myles 00 Stop date: 01/31/19 8:28:00 MANAGER SOUND phenylephri 2018-02 No Route: IV, Memoria ne (ANES) 2- Drug form: l 14:28: INJ, ONCE, [place] 00 Stop date: 01/31/19 8:28:00 MANAGER SOUND Sodium 2018-02 No 500 mL, Memoria Chloride 2-06 1500 l 0.9% 14:26: ml/hr, Myles (Bolus) IV 00 Infuse Over: 20 minutes, Route: IV, 500, Drug form: INJ, ONCE, Dosing Weight 74.008 kg, Start date: 01/31/19 8:26:00 MANAGER SOUND, Stop date: 01/31/19 8:26:00 MANAGER SOUND, 0 Calcium 2018-02 No 1,000 mL, Memor ia Chloride 2-06 Rate: 125 l 0.0014 14:26: ml/hr, [place] MEQ/ML / 00 Infuse Potassium over: 8 Chloride hr, Route: 0.004 IV, Dosing MEQ/ML / Weight Sodium 74.008 kg, Chloride Total 0.103 Volume: MEQ/ML / 1,000, Sodium Start Lactate date: 0.028 01/31/19 MEQ/ML 8:26:00 Injectable MANAGER SOUND, Solution Duration: 30 day, Stop date: 03/02/19 8:25:00 MANAGER SOUND, 1.86, m2, 0 Hydralazine 2018-02 No Notes: Bryant félix 2-06 (Same as: l 14:26: Apresoline [place] 00 ) Push over 5 minutes Metoprolol 2018-02 No Notes: Memor ia 2-06 (Same as: l 14:26: Lopressor) Myles 00 Push over 2 minutes Acetaminoph 2018-02 No Notes: Max Memoria en 2-06 acetaminop l 14:26: hen 4000 Myles 00 mg/day (4 gm/day). (Same as: Tylenol Extra Strength) Morphine 2018-02 No Notes: Memoria 2-06 (Same l 14:26: as:MORPhin Myles 00 e Sulfate) Hydromorpho 2018-02 No Notes: Bryant félix ne 2-06 Same as l 14:26: Dilaudid Flumazenil 2018-02 No Notes: Memor ia 2-06 (Same as: l 14:26: Romazicon) Naloxone 2018-02 No Notes: Memoria 2-06 Same as l 14:26: Narcan Albuterol 2018-02 No Notes: SEE Me moria 0.83 MG/ML 2-06 RT l Inhalant 14:26: DOCUMENTAT Her palacios Solution 00 ION (Same as: Proventil) Diphenhydra 2018-02 No Notes: Bryant félix mine 2-06 (Same as: l 14:26: Benadryl) Meperidine 2018-02 No Notes: Memor ia 2-06 (Same as: l 14:26: Demerol) "Use Precaution in Elderly, Seizure disorders, and Renal impairment " Ondansetron 2018-02 No Notes: Bryant félix 2-06 (Same as: l 14:26: Zofran) MEDICATION WASTE Product Size: 4 mg Product Wasted: ___ mg Promethazin 2018-02 No Notes: Do M emoria e 2-06 not give l 14:26: IV push. (Same as: Phenergan) ciprofloxac 2018-02 No Route: IV, Memoria in (ANES) 2 2- Drug form: l mg 13:42: INJ, Start [place] 00 date: 01/31/19 7:42:00 MANAGER SOUND, Stop date: 01/31/19 8:42:00 MANAGER SOUND Sodium 2018-02 No Route: IV, Memor ia Chloride 2-06 Total l 0.9% IV 13:30: Volume: [place] (ANES) 1000 00 1,000, mL Start date: 01/31/19 7:30:00 MANAGER SOUND, Stop date: 01/31/19 8:30:00 MANAGER SOUND ceFAZolin + 2018-02 No Notes: Rbyant félix sterile 2-06 (Same As: l water 20 mL 05:00: Ancef, Herm claudia Kefzol) MEDICATION WASTE Product Size: 1000 mg Product Wasted: ___ mg Cipro 2018-02 No Notes: Do Memoria 2-06 not l 05:00: refrigerat [place] 00 e PROSTATE 2018-02 Yes PROSTATE Memor ia PLUS 1-25 PLUS, PO, l 16:29: Daily, Myles 00 Refill(s) 0 TUMERIC 2018-02 Yes TUMERIC, Memori a 1-25 1,000 mg l 16:27: =, PO, Refill(s) 0 Glucosamine 2018-02 Yes PO, 0 Memor ia 1-25 Refill(s) l 16:27: Myles ALLER FLEX 2018-02 Yes ALLER Memori a 1-25 FLEX, 180 l 16:26: mg =, PO, Daily, PRN Allergies, Refill(s) 0 Levaquin 2018-02 Yes 500 mg = 1 Mem oria 1-07 tab, PO, l 21:17: Daily, # Myles 00 10 tab, 0 Refill(s) Metformin 2018-02 Yes PO, 0 Memoria -07 Refill(s) l 21:17: [place] 00 simvastatin 2018-02 Yes 40 mg = 1 M emoria 40 mg oral 03-04 tab, PO, l tablet 21:17: Bedtime, 0 Monica Refill(s) Hydrochloro 2018-02 Yes PO, Daily, Memoria thiazide 07 0 l 21:17: Refill(s) lisinopril 2018-02 Yes 10 mg = 1 Me moria 10 mg oral -07 tab, PO, l tablet 21:17: Daily, 0 [place] 00 Refill(s) Aspirin 2018-02 Yes 0 Memoria 1-07 Refill(s) l 21:17: Myles 00 0.5 ML 2018-02 Yes SUB-Q, 0 Memoria dulaglutide -07 Refill(s) l 3 MG/ML 21:17: Myles Prefilled 00 Syringe [Trulicity] Centrum 2018-02 Yes PO, Daily, Bryant félix Silver 1-07 0 l Men's 21:17: Refill(s) Myles 00 [place]-3 2018-02 Yes 0 Memoria oral 1-07 Refill(s) l capsule 21:17: [place] 00 Tramadol Tramadol Yes Dima as Com mon HCl HCl 4-19 [place] directed Spirit 00:00: - [facility] 00 [facility] traMADol traMADol 2019-0 No traMADol HCl 50 MG HCl 50 MG 4-19 HCl 50 MG 00:00: 00 traMADol traMADol 2019-0 No traMADol HCl 50 MG HCl 50 MG 4-19 HCl 50 MG 00:00: 00 traMADol traMADol 2019-0 No traMADol HCl 50 MG HCl 50 MG 4-19 HCl 50 MG 00:00: 00 traMADol traMADol 2019-0 No traMADol HCl 50 MG HCl 50 MG 4-19 HCl 50 MG 00:00: 00 traMADol traMADol 2019-0 No traMADol HCl 50 MG HCl 50 MG 4-19 HCl 50 MG 00:00: 00 traMADol traMADol 2019-0 No traMADol HCl 50 MG HCl 50 MG 4-19 HCl 50 MG 00:00: 00 Bupivicaine Bupivicaine 2018-1 No 2.5mg Common Ethridge Ethridge 03-23 Spirit 00:00: - [facility] Bupivicaine Bupivicaine 2018-1 No 2.5mg Common Ethridge Ethridge 03-23 Spirit 00:00: - [facility] Bupivicaine Bupivicaine 2018-1 No 2.5mg Common Ethridge Ethridge 03-23 Spirit 00:00: - [facility] Bupivicaine Bupivicaine 2018-1 No 2.5mg Common Ethridge Ethridge 03-23 Spirit 00:00: - [facility] Bupivicaine Bupivicaine 2018-1 No 2.5mg Common Ethridge Ethridge 03-23 Spirit 00:00: - [facility] Bupivicaine Bupivicaine 2018-1 No 2.5mg Common Ethridge Ethridge 03-23 Spirit 00:00: - [facility] Depo Medrol Depo Medrol 2018-0 No 40mg Common (40mg) (40mg) 11-08 Spirit 00:00: - [facility] Bupivicaine Bupivicaine 2018-0 No 2.5mg Common Ethridge Ethridge 11-08 Spirit 00:00: - [facility] Depo Medrol Depo Medrol 2018-0 No 40mg Common (40mg) (40mg) 11-08 Spirit 00:00: - [facility] Bupivicaine Bupivicaine 2018-0 No 2.5mg Common Ethridge Ethridge 11-08 Spirit 00:00: - [facility] Depo Medrol Depo Medrol 2018-0 No 40mg Common (40mg) (40mg) 11-08 Spirit 00:00: - [facility] Bupivicaine Bupivicaine 2018-0 No 2.5mg Common Ethridge Ethridge 11-08 Spirit 00:00: - [facility] Depo Medrol Depo Medrol 2018-0 No 40mg Common (40mg) (40mg) 11-08 Spirit 00:00: - [facility] Bupivicaine Bupivicaine 2018-0 No 2.5mg Common Ethridge Ethridge 11-08 Spirit 00:00: - [facility] Depo Medrol Depo Medrol 2018-0 No 40mg Common (40mg) (40mg) 11-08 Spirit 00:00: - [facility] Bupivicaine Bupivicaine 2018-0 No 2.5mg Common Ethridge Ethridge 11-08 Spirit 00:00: - [facility] Depo Medrol Depo Medrol 2018-0 No 40mg Common (40mg) (40mg) 11-08 Spirit 00:00: - [facility] Bupivicaine Bupivicaine 2018-0 No 2.5mg Common Ethridge Ethridge 11-08 Spirit 00:00: - [facility] Bupivicaine Bupivicaine 2018-0 No 5mL Common Ethridge Ethridge 09-13 Spirit 00:00: - [facility] Depo Medrol Depo Medrol 2018-0 No 1mL Common (40mg) (40mg) 09-13 Spirit 00:00: - [facility] Depo Medrol Depo Medrol 2018-0 No 1mL Common (40mg) (40mg) 09-13 Spirit 00:00: - [facility] Bupivicaine Bupivicaine 2018-0 No 5mL Common Ethridge Ethridge 09-13 Spirit 00:00: - [facility] Depo Medrol Depo Medrol 2018-0 No 1mL Common (40mg) (40mg) 09-13 Spirit 00:00: - [facility] Bupivicaine Bupivicaine 2018-0 No 5mL Common Ethridge Ethridge 09-13 Spirit 00:00: - [facility] Depo Medrol Depo Medrol No 1mL Common (40mg) (40mg) 09-13 Spirit 00:00: - [facility] Bupivicaine Bupivicaine 2017-0 No 5mL Common Ethridge Ethridge 09-13 Spirit 00:00: - [facility] Bupivicaine Bupivicaine 2017-0 No 5mL Common Ethridge Ethridge 09-13 Spirit 00:00: - [facility] Depo Medrol Depo Medrol 0 No 1mL Common (40mg) (40mg) 09-13 Spirit 00:00: - [facility] Bupivicaine Bupivicaine 2017-0 No 5mL Common Ethridge Ethridge 09-13 Spirit 00:00: - [facility] Depo Medrol Depo Medrol 0 No 1mL Common (40mg) (40mg) 09-13 Spirit 00:00: - [facility] Hydrochloro Hydrochloro Yes Dima 1 tablet Common thiazide thiazide [place] in the Spi [facility] morning [facility] Lisinopril Lisinopril Yes Dima 1 tablet Common [place] [facility] Novolin Novolin Yes Dima as Common 70/30 70/30 [place] directed [facility] Simvastatin Simvastatin Yes Dima 1 tablet Common [place] in the [facility] evening [facility] Metformin Metformin Yes Dima 1 tablet Common HCl HCl [place] with a [facility] meal [facility] Jardiance Jardiance Yes Dima not Com mon [place] defined [facility] Trulicity Trulicity Yes Dima not Com mon [place] defined [facility] Simvastatin Simvastatin No 1{table QD Simvastati 40 MG 40 MG t_in_th n 40 MG e_eveni ng} Vitamin D3 Vitamin D3 No Vitamin D3 NovoLIN NovoLIN No NovoLIN 70/30 70/30 70/30 (70-30) 100 (70-30) 100 (70-30) UNIT/ML UNIT/ML 100 UNIT/ML Atrovent Atrovent No Atrovent Trulicity Trulicity No Trulicity Lisinopril Lisinopril No 1{table QD Lisinopril 10 MG 10 MG t} 10 MG Vitamin D3 Vitamin D3 No Vitamin D3 Soliqua Soliqua No Soliqua Vitamin C Vitamin C No Vitamin C hydroCHLORO hydroCHLORO No 1{table QD hydroCHLOR thiazide 25 thiazide 25 t_in_th Othiazide MG MG e_morni 25 MG ng} metFORMIN metFORMIN No 1{table QD metFORMIN HCl 500 MG HCl 500 MG t_with_ HCl 500 MG a_meal} Candesartan Candesartan No Candesarta Cilexetil Cilexetil n Cilexetil Atrovent Atrovent No Atrovent Simvastatin Simvastatin No 1{table QD Simvastati 40 MG 40 MG t_in_th n 40 MG e_eveni ng} Jardiance Jardiance No Jardiance Glucosamine Glucosamine No Glucosamin e NovoLIN NovoLIN No NovoLIN 70/30 70/30 70/30 (70-30) 100 (70-30) 100 (70-30) UNIT/ML UNIT/ML 100 UNIT/ML NovoLIN NovoLIN No NovoLIN 70/30 70/30 70/30 (70-30) 100 (70-30) 100 (70-30) UNIT/ML UNIT/ML 100 UNIT/ML Vitamin D3 Vitamin D3 No Vitamin D3 Vitamin C Vitamin C No Vitamin C Jardiance Jardiance No Jardiance Candesartan Candesartan No Candesarta Cilexetil Cilexetil n Cilexetil Atrovent Atrovent No Atrovent Trulicity Trulicity No Trulicity Simvastatin Simvastatin No 1{table QD Simvastati 40 MG 40 MG t_in_th n 40 MG e_eveni ng} Lisinopril Lisinopril No 1{table QD Lisinopril 10 MG 10 MG t} 10 MG hydroCHLORO hydroCHLORO No 1{table QD hydroCHLOR thiazide 25 thiazide 25 t_in_th Othiazide MG MG e_morni 25 MG ng} Soliqua Soliqua No Soliqua Glucosamine Glucosamine No Glucosamin e metFORMIN metFORMIN No 1{table QD metFORMIN HCl 500 MG HCl 500 MG t_with_ HCl 500 MG a_meal} Lisinopril Lisinopril No 1{table QD Lisinopril 10 MG 10 MG t} 10 MG Vitamin C Vitamin C No Vitamin C Atrovent Atrovent No Atrovent hydroCHLORO hydroCHLORO No 1{table QD hydroCHLOR thiazide 25 thiazide 25 t_in_th Othiazide MG MG e_morni 25 MG ng} Simvastatin Simvastatin No 1{table QD Simvastati 40 MG 40 MG t_in_th n 40 MG e_eveni ng} Jardiance Jardiance No Jardiance Vitamin D3 Vitamin D3 No Vitamin D3 Soliqua Soliqua No Soliqua Glucosamine Glucosamine No Glucosamin e metFORMIN metFORMIN No 1{table QD metFORMIN HCl 500 MG HCl 500 MG t_with_ HCl 500 MG a_meal} NovoLIN NovoLIN No NovoLIN 70/30 70/30 70/30 (70-30) 100 (70-30) 100 (70-30) UNIT/ML UNIT/ML 100 UNIT/ML Trulicity Trulicity No Trulicity Candesartan Candesartan No Candesarta Cilexetil Cilexetil n Cilexetil Glucosamine Glucosamine No Glucosamin e Atrovent Atrovent No Atrovent metFORMIN metFORMIN No 1{table QD metFORMIN HCl 500 MG HCl 500 MG t_with_ HCl 500 MG a_meal} Simvastatin Simvastatin No 1{table QD Simvastati 40 MG 40 MG t_in_th n 40 MG e_eveni ng} Soliqua Soliqua No Soliqua Vitamin D3 Vitamin D3 No Vitamin D3 Trulicity Trulicity No Trulicity Vitamin C Vitamin C No Vitamin C Lisinopril Lisinopril No 1{table QD Lisinopril 10 MG 10 MG t} 10 MG Jardiance Jardiance No Jardiance Candesartan Candesartan No Candesarta Cilexetil Cilexetil n Cilexetil NovoLIN NovoLIN No NovoLIN 70/30 70/30 70/30 (70-30) 100 (70-30) 100 (70-30) UNIT/ML UNIT/ML 100 UNIT/ML hydroCHLORO hydroCHLORO No 1{table QD hydroCHLOR thiazide 25 thiazide 25 t_in_th Othiazide MG MG e_morni 25 MG ng} Lisinopril Lisinopril No 1{table QD Lisinopril 10 MG 10 MG t} 10 MG Candesartan Candesartan No Candesarta Cilexetil Cilexetil n Cilexetil Vitamin C Vitamin C No Vitamin C Jardiance Jardiance No Jardiance Trulicity Trulicity No Trulicity metFORMIN metFORMIN No 1{table QD metFORMIN HCl 500 MG HCl 500 MG t_with_ HCl 500 MG a_meal} Soliqua Soliqua No Soliqua hydroCHLORO hydroCHLORO No 1{table QD hydroCHLOR thiazide 25 thiazide 25 t_in_th Othiazide MG MG e_morni 25 MG ng} Glucosamine Glucosamine No Glucosamin e Simvastatin Simvastatin No 1{table QD Simvastati 40 MG 40 MG t_in_th n 40 MG e_eveni ng} Vitamin D3 Vitamin D3 No Vitamin D3 NovoLIN NovoLIN No NovoLIN 70/30 70/30 70/30 (70-30) 100 (70-30) 100 (70-30) UNIT/ML UNIT/ML 100 UNIT/ML Atrovent Atrovent No Atrovent Lisinopril Lisinopril No 1{table QD Lisinopril 10 MG 10 MG t} 10 MG Candesartan Candesartan No Candesarta Cilexetil Cilexetil n Cilexetil Vitamin C Vitamin C No Vitamin C Jardiance Jardiance No Jardiance Trulicity Trulicity No Trulicity metFORMIN metFORMIN No 1{table QD metFORMIN HCl 500 MG HCl 500 MG t_with_ HCl 500 MG a_meal} Soliqua Soliqua No Soliqua hydroCHLORO hydroCHLORO No 1{table QD hydroCHLOR thiazide 25 thiazide 25 t_in_th Othiazide MG MG e_morni 25 MG ng} Glucosamine Glucosamine No Glucosamin e Vital Signs Vital Name Observation Time Observation Value Comments Source height 2021-10-25 08:00:00 66 [in_i] [facility] weight 2021-10-25 08:00:00 163 [lb_av] [facility] temperature 2021-10-25 08:00:00 97.6 [degF] [facility] bmi 2021-10-25 08:00:00 26.31 kg/m2 [facility] blood pressure 2021-10-25 08:00:00 130 mm[Hg] [facility] blood pressure 2021-10-25 08:00:00 84 mm[Hg] [facility] - diastolic [facility] height 2021-10-18 09:30:00 66 [in_i] [facility] weight 2021-10-18 09:30:00 163 [lb_av] [facility] temperature 2021-10-18 09:30:00 97.9 [degF] [facility] bmi 2021-10-18 09:30:00 26.31 kg/m2 [facility] blood pressure 2021-10-18 09:30:00 124 mm[Hg] [facility] - systolic [facility] blood pressure 2021-10-18 09:30:00 82 mm[Hg] [facility] - diastolic [facility] height 2021-10-11 08:00:00 66 [in_i] [facility] weight 2021-10-11 08:00:00 163 [lb_av] [facility] temperature 2021-10-11 08:00:00 97.3 [degF] [facility] bmi 2021-10-11 08:00:00 26.31 kg/m2 [facility] S p[facility] blood pressure 2021-10-11 08:00:00 128 mm[Hg] [facility] - systolic [facility] blood pressure 2021-10-11 08:00:00 74 mm[Hg] [facility] - diastolic [facility] height 2021-09-20 13:45:00 66 [in_i] [facility] weight 2021-09-20 13:45:00 163 [lb_av] [facility] temperature 2021-09-20 13:45:00 97.9 [degF] [facility] bmi 2021-09-20 13:45:00 26.31 kg/m2 [facility] blood pressure 2021-09-20 13:45:00 110 mm[Hg] [facility] - systolic [facility] blood pressure 2021-09-20 13:45:00 70 mm[Hg] [facility] - diastolic [facility] height 2021-06-13 08:00:00 66 [in_i] [facility] weight 2021-06-13 08:00:00 169.1 [lb_av] [facility] temperature 2021-06-13 08:00:00 97.8 [degF] [facility] bmi 2021-06-13 08:00:00 27.29 kg/m2 [facility] blood pressure 2021-06-13 08:00:00 132 mm[Hg] [facility] - systolic [facility] blood pressure 2021-06-13 08:00:00 78 mm[Hg] [facility] - diastolic [facility] Systolic (mm Hg) 2019-02-27 15:37:00 [facility] Diastolic (mm Hg) 2019-02-27 15:37:00 [facility] Heart Rate 2019-02-27 15:37:00 [facility] Height 2019-02-27 15:37:00 165.1 cm [facility] Weight 2019-02-27 15:37:00 [facility] BMI Calculated 2019-02-27 15:37:00 [facility] [place] Temperature Oral (F) 2019-02-01 17:14:00 98 F [facility] Heart Rate 2019-02-01 17:14:00 [facility] Respitory Rate 2019-02-01 17:14:00 [facility] [place] Systolic (mm Hg) 2019-02-01 17:14:00 [facility] Diastolic (mm Hg) 2019-02-01 17:14:00 [facility] Temperature Oral (F) 2019-02-01 13:59:00 97.8 F [facility] Heart Rate 2019-02-01 13:59:00 [facility] Respitory Rate 2019-02-01 13:59:00 [facility] [place] Systolic (mm Hg) 2019-02-01 13:59:00 [facility] Diastolic (mm Hg) 2019-02-01 13:59:00 [facility] Temperature Oral (F) 2019-02-01 11:20:00 98.5 F [facility] Heart Rate 2019-02-01 11:20:00 [facility] Respitory Rate 2019-02-01 11:20:00 [facility] Systolic (mm Hg) 2019-02-01 11:20:00 [facility] [place] Diastolic (mm Hg) 2019-02-01 11:20:00 [facility] Weight 2019-01-31 12:51:00 [facility] Height 2019-01-20 15:42:00 165.1 cm [facility] Weight 2019-01-20 15:42:00 [facility] BMI Calculated 2019-01-20 15:42:00 [facility] [place] Systolic (mm Hg) 2019-01-02 21:14:00 [facility] Diastolic (mm Hg) 2019-01-02 21:14:00 [facility] [place] Height 2019-01-02 21:14:00 167.64 cm [facility] Weight 2019-01-02 21:14:00 [facility] BMI Calculated 2019-01-02 21:14:00 [facility] [place] Procedures Procedure Date / Time Performing Clinician Source Performed Measurement of post-voiding 2019-02-27 15:44:00 [facility] [place] residual urine and/or bladder capacity by ultrasound, non-imaging Influenza immunization 2018-10-27 05:00:00 Darrell Oneillann Colonoscopy 2016-08-03 05:00:00 [facility] [place] Bone density scan [facility] Monica nn Cholecystectomy [facility] Knee replacement [facility] Byron n Splenectomy [facility] [place] Encounters Start End Encounter Admission Attending Care Care Encounter Source Date/Time Date/Time Type Type Clinicians Facility Department ID 2021-10-10 Outpatient STLMLC STLC [id number] [facility] 15:26:00 [facility] 2021-06-13 Outpatient STLMLC STLMLC [id number] Common 08:01:00 [facility] 2021-06-10 Outpatient STLMLC STLC [id number] Common 09:38:00 [id number] [facility] 2021-06-01 Outpatient STLMLC STLMLC [id number] Common 09:11:00 [id number] [facility] 2021-10-25 2021-10-25 (IN/ASP) STLMLC STLMLC [id number] C ommon 00:00:00 00:00:00 [facility]J [facility] 2021-10-18 2021-10-18 (IN/ASP) STLMLC STLMLC [id number] C ommon 00:00:00 00:00:00 INJ [facility] 2021-10-11 2021-10-11 (IN/ASP) STLMLC STLMLC [id number] C ommon 00:00:00 00:00:00 INJ [facility] 2021-09-23 2021-09-23 (TEL) STLMLC STLMLC [id number] Co mmon 00:00:00 00:00:00 [facility] 2021-09-20 2021-09-20 OFFICE STLMLC STLMLC [id number] Co mmon 00:00:00 00:00:00 VISIT [facility] ESTAB PT - CHI LEVEL [address] [place] [address] 2021-06-13 2021-06-13 OFFICE STLMLC STLMLC [id number] Co mmon 00:00:00 00:00:00 VISIT [facility] PT LEVEL 4 [facility] 2019-05-29 2019-05-29 Ambulatory nullFlavo [facility]MG [id number] Memoria 14:45:00 14:45:00 Pre-Reg r Urology 04 [facility] 2019-05-29 2019-05-29 Ambulatory nullFlavo [facility] [id number] Memoria 14:45:00 14:45:00 Pre-Reg r Urology 05 [facility] 2019-05-29 2019-05-29 Outpatient MHIE MHIE [id number] Memoria 09:45:00 09:45:00 05 [facility] 2019-05-29 2019-05-29 Outpatient MHIE MHIE [id number] Memoria 09:45:00 09:45:00 04 [facility] 2019-05-29 2019-05-29 Outpatient Shahriar Ferris [facility] [id number] 09:45:00 09:45:00 Esteban 04 2019-05-29 2019-05-29 Outpatient Shahriar Ferris [facility] [id number] 09:45:00 09:45:00 Esteban 05 2019-02-27 2019-02-28 Outpatient nullFlavo [facility] [id number] Memoria 15:45:00 05:59:59 r Urology 03 [facility] 2019-02-27 2019-02-27 Outpatient Shahriar Ferris [facility] [id number] 09:45:00 23:59:59 Esteban 03 2019-02-27 2019-02-27 Outpatient MHIE [facility] [id number] Memoria 09:45:00 09:45:00 03 [facility] 2019-02-13 2019-02-13 Ambulatory nullFlavo [facility] [id number] Memoria 15:45:00 15:45:00 Pre-Reg r Urology 02 [facility] 2019-02-13 2019-02-13 Outpatient IE [facility] [id number] Memoria 09:45:00 09:45:00 02 [facility] 2019-02-13 2019-02-13 Outpatient Shahriar Ferris [facility] [id number] 09:45:00 09:45:00 Esteban 2019-02-07 2019-02-08 Outpatient nullFlavo [facility] [id number] Memoria 16:00:00 05:59:59 r Urology [facility] 2019-02-07 2019-02-07 Outpatient Shahriar Ferris [facility] [id number] 10:00:00 23:59:59 Esteban 2019-02-07 2019-02-07 Outpatient MHIE IE [id number] Memoria 10:00:00 10:00:00 01 [facility] 2019-01-31 2019-02-01 Day nullFlavo [facility] [id number] Memoria 11:48:00 20:00:00 Surgery r [place] [address] [facility] 2019-01-31 2019-02-01 Outpatient Shahriar Ferris [facility] [id number] 05:48:00 14:00:00 Esteban 00 2019-01-31 2019-01-31 Outpatient [facility] URO [id number] Memoria 05:48:00 05:48:00 [facility] 2019-01-27 2019-01-28 Outpt Diag nullFlavo [facility] [id number] Memoria 16:52:00 05:59:00 [facility] 2019-01-27 2019-01-27 Outpatient Shahriar Ferris MHOIP MHOIP [id number] 10:52:00 23:59:00 Esteban 01 2019-01-15 2019-01-16 Outpt Diag nullFlavo [facility] [id number] Memoria 18:15:00 05:59:00 Services r Outpatient 00 l [facility] 2019-01-15 2019-01-15 Outpatient Shahriar Ferris [id number] 12:15:00 23:59:00 Esteban [id number] 2019-01-02 2019-01-03 Outpatient nullFlavo [facility] [id number] Memoria 21:00:00 05:59:59 r Urology 00 l [facility] 2019-01-02 2019-01-02 Outpatient Shahriar Ferris [facility] [id number] 15:00:00 23:59:59 Esteban 00 2019-01-02 2019-01-02 Outpatient MHIE IE [id number] Memoria 15:00:00 15:00:00 00 [facility] 2018-12-11 2018-12-11 [facility] [id number] Common 10:30:00 10:30:00 [facility] 2018-06-14 2018-06-14 [facility] [id number] Common 09:00:00 09:00:00 t [facility] 2018-05-31 2018-05-31 [facility] [id number] Common 10:30:00 10:30:00 t [facility] 2018-05-24 2018-05-24 [facility] [id number] Common 10:00:00 10:00:00 t [facility] 2018-05-10 2018-05-10 [facility] [id number] Common 11:49:00 11:49:00 t [facility] 2018-05-09 2018-05-09 [facility] [id number] Common 17:04:00 17:04:00 t [facility] 2018-04-26 2018-04-26 [facility] [id number] Common 09:30:00 09:30:00 t [facility] 2018-02-04 2018-02-04 [facility] [id number] Common 15:00:00 15:00:00 t [facility] Bone [facility] 2017-12-06 2017-12-06 [facility] [id number] Common 09:00:00 09:00:00 t [facility] Bone [facility] Spiri t [facility] 2017-11-08 2017-11-08 [facility] [id number] Common 09:30:00 09:30:00 t [facility] Bone [facility] Sp[facility] t [facility] 2017-10-12 2017-10-12 [facility] [id number] Common 10:00:00 10:00:00 t Bone Bone and Spiri t and [facility] 2017-10-05 2017-10-05 [facility] [id number] Common 08:18:00 08:18:00 t [facility] Bone [facility] Spiri t [facility] 2017-09-20 2017-09-20 [facility] [id number] Common 09:30:00 09:30:00 t [facility] Bone [facility] Spiri t [facility] 2017-09-13 2017-09-13 [facility] [id number] Common 08:30:00 08:30:00 t [facility] Bone [facility] Spiri t [facility] Results Test Description Test Time Test Comments Results Result Comments Source URINE AND STOOL 2019-02-27 17:03:00 Test Item Value Reference Range Interpretation Comme nts POC UA pH (test code = POC UA pH) 5.0 1 5.0-8.0 [facility] [id number] 17:03:00 Test Item Value Reference Range Interpretation Comments POC UA Prot (test code = POC Negative mg/dL UA Prot) [facility] AND [id number] 17:03:00 Test Item Value Reference Range Interpretation Comments POC UA Glu (test code = POC UA Glu) 500 mg/dL [facility] AND [id number] 17:03:00 Test Item Value Reference Range Interpretation Comments POC UA Ket (test code = POC UA Ket) 15 mg/dL [facility] [id number] 17:03:00 Test Item Value Reference Range Interpretation Comments POC UA Bili (test Negative *NA*(02/27/19 code = POC UA Bili) 11:03 AM) [facility] [id number] 17:03:00 Test Item Value Reference Range Interpretation Comments POC UA Bld (test code Small *ABN*(02/27/19 = POC UA Bld) 11:03 AM) [facility] [id number] 17:03:00 Test Item Value Reference Range Interpretation Comments POC UA Uro (test code = POC UA Uro) 0.2 0.1-1.0 [facility] [id number] 17:03:00 Test Item Value Reference Range Interpretation Comments POC UA Nit (test code Negative *NA*(02/27/19 = POC UA Nit) 11:03 AM) [facility] [id number] 17:03:00 Test Item Value Reference Range Interpretation Comments POC UA LeukEst (test Negative *NA*(02/27/19 code = POC UA LeukEst) 11:03 AM) [facility] AND [id number] 17:03:00 Test Item Value Reference Range Interpretation Comments POC UA Color (test Yellow *NA*(02/27/19 code = POC UA Color) 11:03 AM) [facility] AND [id number] 17:03:00 Test Item Value Reference Range Interpretation Comments POC UA Turbidity (test Clear *NA*(02/27/19 code = POC UA Turbidity) 11:03 AM) [facility] AND [id number] 17:03:00 Test Item Value Reference Range Interpretation Comments POC UA SG (test code = POC UA SG) 1.[address] [facility]2019-12-07 14:40:00 Test Item Value Reference Range Interpretation Comments Creatinine BF (test code = Creatinine 0.80 BF) [facility]2019-12-07 14:40:00 Test Item Value Reference Range Interpretation Comments Creat BF Type (test FAITH Drain *NA*(02/01/19 code = Creat BF Type) 8:40 AM) [id number] 11:56:00 Test Item Value Reference Range Interpretation Comments AGAP (test code = AGAP) 11.3 10.0-20.0 [facility] Hospital[id number] 11:56:00 Test Item Value Reference Range Interpretation Comments Glucose Lvl (test code = Glucose Lvl) 188 70-99 [facility] Hos[id number] 11:56:00 Test Item Value Reference Range Interpretation Comments BUN (test code = BUN) 8 7-22 [facility] Hos[id number] 11:56:00 Test Item Value Reference Range Interpretation Comments Creatinine Lvl (test code = Creatinine 1.00 0.50-1.40 Lvl) [facility] H[id number] 11:56:00 Test Item Value Reference Range Interpretation Comments Sodium Lvl (test code = Sodium Lvl) 140 135-145 [facility] Ho[id number] 11:56:00 Test Item Value Reference Range Interpretation Comments Potassium Lvl (test code = Potassium 4.3 3.5-5.1 Lvl) [facility] Hos[id number] 11:56:00 Test Item Value Reference Range Interpretation Comments Chloride Lvl (test code = Chloride Lvl) 105 95-109 [facility] Hos[id number] 11:56:00 Test Item Value Reference Range Interpretation Comments CO2 (test code = CO2) 28 24-32 [facility] Hospital[id number] 11:56:00 Test Item Value Reference Range Interpretation Comments Calcium Lvl (test code = Calcium Lvl) 9.0 8.5-10.5 [facility] HospitalEnjpvuuKGPTPDBXDOIM8986-31-22 11:56:00 Test Item Value Reference Range Interpretation Comments eGFR (test code = eGFR) 78 [id number] 11:56:00 Test Item Value Reference Range Interpretation Comments Hgb (test code = Hgb) 14.6 14.0-18.0 [facility] [id number] 11:56:00 Test Item Value Reference Range Interpretation Comments Hct (test code = Hct) 43.7 42.0-54.0 [facility]2019-12-06 17:57:00 Test Item Value Reference Range Interpretation Comments Glucose Lvl (test code = Glucose Lvl) 242 70-99 [facility]2019-12-06 17:57:00 Test Item Value Reference Range Interpretation Comments BUN (test code = BUN) 11 7-22 [place] [id number] 17:57:00 Test Item Value Reference Range Interpretation Comments Creatinine Lvl (test code = Creatinine 1.18 0.50-1.40 Lvl) [facility]2019-12-06 17:57:00 Test Item Value Reference Range Interpretation Comments Sodium Lvl (test code = Sodium Lvl) 139 135-145 [facility]2019-12-06 17:57:00 Test Item Value Reference Range Interpretation Comments Potassium Lvl (test code = Potassium 4.1 3.5-5.1 Lvl) [facility]2019-12-06 17:57:00 Test Item Value Reference Range Interpretation Comments Chloride Lvl (test code = Chloride Lvl) 105 95-109 [facility]2019-12-06 17:57:00 Test Item Value Reference Range Interpretation Comments CO2 (test code = CO2) 29 24-32 [facility]2019-12-06 17:57:00 Test Item Value Reference Range Interpretation Comments Calcium Lvl (test code = Calcium Lvl) 9.7 8.5-10.5 [facility]2019-12-06 17:57:00 Test Item Value Reference Range Interpretation Comments eGFR (test code = eGFR) 63 [facility]2019-12-06 17:57:00 Test Item Value Reference Range Interpretation Comments AGAP (test code = AGAP) 9.1 10.0-20.0 [facility] [id number] 17:57:00 Test Item Value Reference Range Interpretation Comments Hgb (test code = Hgb) 14.5 14.0-18.0 [facility] Ho[id number] 17:57:00 Test Item Value Reference Range Interpretation Comments Hct (test code = Hct) 44.3 42.0-54.0 [facility] HospitalCafhoqtURQQJXQQMMUG7579-70-25 16:25:00 Test Item Value Reference Range Interpretation Comments AGAP (test code = AGAP) 9.9 10.0-20.0 [facility] Hospi[id number] 16:25:00 Test Item Value Reference Range Interpretation Comments Glucose Lvl (test code = Glucose Lvl) 105 70-99 [facility] Hospital[id number] 16:25:00 Test Item Value Reference Range Interpretation Comments BUN (test code = BUN) 13 7-22 [facility] HospitalNiefwwwVVUQATTDRHXQ0307-17-57 16:25:00 Test Item Value Reference Range Interpretation Comments Creatinine Lvl (test code = Creatinine 0.88 0.50-1.40 Lvl) [facility] HospitalJrzlkfvGSPYNOHGMNCN6491-11-18 16:25:00 Test Item Value Reference Range Interpretation Comments Sodium Lvl (test code = Sodium Lvl) 139 135-145 [facility] Hospital[id number] 16:25:00 Test Item Value Reference Range Interpretation Comments Potassium Lvl (test code = Potassium 3.9 3.5-5.1 Lvl) [facility] Hosp[id number] 16:25:00 Test Item Value Reference Range Interpretation Comments Chloride Lvl (test code = Chloride Lvl) 102 95-109 [facility] HospitalQth[id number] 16:25:00 Test Item Value Reference Range Interpretation Comments CO2 (test code = CO2) 31 24-32 [facility] HospitalYihqucmGEXRFAVBRALE1026-34-48 16:25:00 Test Item Value Reference Range Interpretation Comments Calcium Lvl (test code = Calcium Lvl) 10.6 8.5-10.5 [facility] Hospital[id number] 16:25:00 Test Item Value Reference Range Interpretation Comments eGFR (test code = eGFR) 89 [facility] Houst[id number] 16:25:00 Test Item Value Reference Range Interpretation Comments WBC (test code = WBC) 8.0 3.7-10.4 [facility] Houst[id number] 16:25:00 Test Item Value Reference Range Interpretation Comments RBC (test code = RBC) 5.05 4.70-6.10 [facility] HoustonKliuyunHHXYQUOBKJ4191-74-00 16:25:00 Test Item Value Reference Range Interpretation Comments Hgb (test code = Hgb) 15.9 14.0-18.0 [facility] HoustonMaikpskSRVDQZTDXK0988-48-79 16:25:00 Test Item Value Reference Range Interpretation Comments Hct (test code = Hct) 47.1 42.0-54.0 [facility] [id number] 16:25:00 Test Item Value Reference Range Interpretation Comments MCV (test code = MCV) 93.1 80.0-94.0 [id number] 16:25:00 Test Item Value Reference Range Interpretation Comments MCH (test code = MCH) 31.5 pg 27.0-31.0 [facility] [id number] 16:25:00 Test Item Value Reference Range Interpretation Comments MCHC (test code = MCHC) 33.9 32.0-36.0 [id number] 16:25:00 Test Item Value Reference Range Interpretation Comments RDW (test code = RDW) 14.1 11.5-14.5 [facility] [id number] 16:25:00 Test Item Value Reference Range Interpretation Comments Platelet (test code = Platelet) 252 133-450 [facility] [id number] 16:25:00 Test Item Value Reference Range Interpretation Comments MPV (test code = MPV) 8.8 7.4-10.4 [facility] [id number] 16:25:00 Test Item Value Reference Range Interpretation Comments INR (test code = INR) 0.92 1 0.85-1.17 [facility] [id number] 16:25:00 Test Item Value Reference Range Interpretation Comments PT (test code = PT) 12.2 s 12.0-14.7 [facility] [id number] 16:25:00 Test Item Value Reference Range Interpretation Comments PTT (test code = PTT) 27.7 s 22.9-35.8 [facility] [id number] 16:25:00 Test Item Value Reference Range Interpretation Comments Segs (test code = Segs) 47.6 45.0-75.0 [facility] [id number] 16:25:00 Test Item Value Reference Range Interpretation Comments Lymphocytes (test code = Lymphocytes) 41.1 20.0-40.0 [facility] HoustonDgxfxtoUTOYZYHSEI7840-12-37 16:25:00 Test Item Value Reference Range Interpretation Comments Monocytes (test code = Monocytes) 8.7 2.0-12.0 [facility] Houst[id number] 16:25:00 Test Item Value Reference Range Interpretation Comments Eosinophils (test code = 2.1 See_Comment [A utomated message] The Eosinophils) system which ge nerated this result tra nsmitted reference range : <=4.0. The reference r ernestine was not used to int erpret this result as normal/abnormal . [facility] [id number] 16:25:00 Test Item Value Reference Range Interpretation Comments Basophils (test code = 0.5 See_Comment [Aut omated message] The Basophils) system which ge nerated this result tra nsmitted reference range : <=1.0. The reference r ernestine was not used to int erpret this result as normal/abnormal . [facility] [id number] 16:25:00 Test Item Value Reference Range Interpretation Comments Neutrophils # (test code = Neutrophils 3.8 1.5-8.1 #) [facility] Ho[id number] 16:25:00 Test Item Value Reference Range Interpretation Comments Lymphocytes # (test code = Lymphocytes 3.3 1.0-5.5 #) [facility] [id number] 16:25:00 Test Item Value Reference Range Interpretation Comments Monocytes # (test code 0.7 See_Comment [Aut omated message] The = Monocytes #) system which generated this result tra nsmitted reference range : <=0.8. The reference r ernestine was not used to int erpret this result as normal/abnormal . [facility] [id number] 16:25:00 Test Item Value Reference Range Interpretation Comments Eosinophils # (test code 0.2 See_Comment [A utomated message] The = Eosinophils #) system whic h generated this result tra nsmitted reference range : <=0.5. The reference r ernestine was not used to int erpret this result as normal/abnormal . [facility] AND [id number] 16:25:00 Test Item Value Reference Range Interpretation Comments UA Color (test code = Yellow *NA*(01/20/19 UA Color) 10:25 AM) [facility] AND [id number] 16:25:00 Test Item Value Reference Range Interpretation Comments UA Turbidity (test code Slight *ABN*(01/20/19 = UA Turbidity) 10:25 AM) [facility] AND [id number] 16:25:00 Test Item Value Reference Range Interpretation Comments UA Spec Grav (test code = UA Spec 1.012 1 Grav) [facility] AND [id number] 16:25:00 Test Item Value Reference Range Interpretation Comments UA pH (test code = UA pH) 6.0 1 5.0-8.[address] [facility] AND [id number] 16:25:00 Test Item Value Reference Range Interpretation Comments UA Protein (test code = UA Negative mg/dL Protein) [facility] AND [id number] 16:25:00 Test Item Value Reference Range Interpretation Comments UA Glucose (test code = UA Negative mg/dL Glucose) [facility] AND [id number] 16:25:00 Test Item Value Reference Range Interpretation Comments UA Bili (test code = Negative *NA*(01/20/19 UA Bili) 10:25 AM) [facility] AND [id number] 16:25:00 Test Item Value Reference Range Interpretation Comments UA Blood (test code = Moderate *ABN*(01/20/19 UA Blood) 10:25 AM) [facility] AND [id number] 16:25:00 Test Item Value Reference Range Interpretation Comments UA Nitrite (test code Negative (01/20/19 = UA Nitrite) 10:25 AM) [facility] AND [id number] 16:25:00 Test Item Value Reference Range Interpretation Comments UA Leuk Est (test Negative (01/20/19 10:25 code = UA Leuk Est) AM) [facility] AND [id number] 16:25:00 Test Item Value Reference Range Interpretation Comments UA RBC (test code = 7 See_Comment [Automa diaz message] The UA RBC) system which ge nerated this result transmit diaz reference range : <=2. The reference range was not used to interpr et this result as ted l/abnormal. [facility] AND [id number] 16:25:00 Test Item Value Reference Range Interpretation Comments UA Mucus (test code = UA Mucus) Few /LPF [facility] AND [id number] 16:25:00 Test Item Value Reference Range Interpretation Comments UA Sperm (test code = UA Occasional /HPF Sperm) [facility] AND [id number] 16:25:00 Test Item Value Reference Range Interpretation Comments Micro? (test code = Performed *NA*(01/20/19 Micro?) 10:25 AM) [facility] AND [id number] 16:25:00 Test Item Value Reference Range Interpretation Comments UA Ketones (test code = UA Ketones) Negative [facility] AND [id number] 16:25:00 Test Item Value Reference Range Interpretation Comments UA Urobilinogen (test code = UA <=1.0 mg/dL 0.1-1.0 Urobilinogen) [facility] [id number] 16:25:00 Test Item Value Reference Range Interpretation Comments Culture: Urine (test code = No Growth Culture: Urine) [facility] AND [id number] 22:31:00 Test Item Value Reference Range Interpretation Comments POC UA Color (test Yellow *NA*(01/02/19 code = POC UA Color) 4:31 PM) [facility] AND [id number] 22:31:00 Test Item Value Reference Range Interpretation Comments POC UA Turbidity (test Clear *NA*(01/02/19 code = POC UA Turbidity) 4:31 PM) [facility] AND [id number] 22:31:00 Test Item Value Reference Range Interpretation Comments POC UA SG (test code = POC UA SG) 1.[address] [facility] AND [id number] 22:31:00 Test Item Value Reference Range Interpretation Comments POC UA pH (test code = POC UA pH) 5.5 1 5.0-8.[address] [facility] AND [id number] 22:31:00 Test Item Value Reference Range Interpretation Comments POC UA Prot (test code = POC Negative mg/dL UA Prot) [facility] AND [id number] 22:31:00 Test Item Value Reference Range Interpretation Comments POC UA Glu (test code = POC UA Negative mg/dL Glu) [facility] AND [id number] 22:31:00 Test Item Value Reference Range Interpretation Comments POC UA Ket (test code = POC UA Negative mg/dL Ket) [facility] AND [id number] 22:31:00 Test Item Value Reference Range Interpretation Comments POC UA Bili (test Negative *NA*(01/02/19 code = POC UA Bili) 4:31 PM) [facility] AND [id number] 22:31:00 Test Item Value Reference Range Interpretation Comments POC UA Bld (test code Large *ABN*(01/02/19 = POC UA Bld) 4:31 PM) [facility] AND [id number] 22:31:00 Test Item Value Reference Range Interpretation Comments POC UA Uro (test code = POC UA Uro) 0.2 0.1-1.[address] [facility] AND [id number] 22:31:00 Test Item Value Reference Range Interpretation Comments POC UA Nit (test code Negative *NA*(01/02/19 = POC UA Nit) 4:31 PM) [facility] AND [id number] 22:31:00 Test Item Value Reference Range Interpretation Comments POC UA LeukEst (test Negative *NA*(01/02/19 code = POC UA LeukEst) 4:31 PM) [facility] Date/Time Note Provider Source 2019-01-27 11:11:00-00:00 Radiation Dose CTDIVOL = 0 ( mGy): DLP = 724.3 (mGy-cm) SHERIDAN [place] PROCEDURE INFORMATION: Exam: CT Abdomen And Pelvis With Contrast Exam date and time: 01/27/2019 11:42 AM Age: 68 years old Clinical history: Malignant neoplasm of prostate ; Additional info: /prostate cancer TECHNIQUE: Imaging protocol: Computed tomography of the abd omen and pelvis with intravenous contrast. Total DLP: 724.3 mGy-cm Radiation optimization: All CT scans at this facility use at least one of these dose optimization techniques: automated exposure control; mA and/or kV adjustment per patient size (includes targeted e xams where dose is matched to clinical indication); or iterative reconstructio n. Contrast material: OMNIPAQUE 300; Contra st volume: 100 ml; Contrast route: IV; Other contrast: Route: Oral, Material: REDICAT, Volume: 700 ML; COMPARISON: PROSTATE WITH AND WITHOUT CONTRAST MRI 9 12:58 PM FINDINGS: Lower chest: A 6.0 mm ill-defined ground-glass n odular density noted in the anterior aspect of the right middle lobe (series 3, image 7). A 2.9 mm nodule in the anteroinferior periph sae of the right lower lobe (series 2, image 13). A 7.6 mm calcified subpleural granuloma noted in t he medial margin of the left lower lobe (series 3, image 8). Coronary artery calcifications noted in the LAD distribution. Liver: Normal. No mass. Gallbladder and bile ducts: Gallbladder is surgi tony absent. No ductal dilation. Pancreas: Normal. No ductal dilation. Spleen: Appear surgically absent. Adrenals: Normal. No mass. Kidneys and ureters: Bilateral kidneys is enhanc e symmetrically. No hydronephrosis. Jtkh-lf-ginyfovo bilateral perin ephric fat stranding noted. Stomach and bowel: Scattered diverticuli emanating from portions of the colon, without any CT evidence of acute surrounding inf lammatory changes. No obstruction. No mucosal thickening. Appendix: No evidence of appendicitis. Intraperitoneal space: Unremarkable. No free air . No significant fluid collection. Vasculature: Unremarkable. No abdominal aortic a neurysm. Lymph nodes: Prominent (but not grossly enlarged by CT standards) left iliac chain lymph node, measuring 8.5 mm in short axis diameter. No enlarged lymph nodes. Bladder: Mild anterior bladder wall thickening n oted. Reproductive: Prostate gland is mildly enlarged, measuring 4.7 cm in transverse dimension. Central prostatic calcifications note d. Bones/joints: Mild degenerative changes in the r ight SI joint. Additional degenerative changes in portions of the visualiz ed spine. No acute fracture. Soft tissues: Small uncomplicated right-sided fa t containing inguinal hernia noted. Calcified injection granuloma noted in th e left buttock region. IMPRESSION: 1. No CT evidence of acute pathology in the abdo men or pelvis. 2. Prominent (but not grossly enlarged by CT sta ndards) left external iliac chain lymph node. 3. Mild prostatomegaly. Central prostatic calcif ications. 4. Mild anterior bladder wall thickening. Differ ential considerations include underdistended bladder, chronic cystitis, bladde r outlet obstruction or neurogenic bladder. 5. Colonic diverticulosis without any CT evidenc e of acute diverticulitis. 6. Prior cholecystectomy. Prior splenectomy. 7. Small uncomplicated right-sided fat containin g inguinal hernia. 8. A 6 mm ill-defined ground-glass nodular densi ty in the anterior aspect of the right middle lobe. A 2.9 mm nodule in the an teroinferior periphery of the right lower lobe. Given patient's history of pro static neoplasm, consider dedicated CT chest study for further evaluation, as clinically indicated. 9. Additional chronic/incidental findings, as de tailed above. July Resendez On 01/27/2019 15:09:54; [id number] 2019-01-15 13:05:00-00:00 PROCEDURE INFORMATION: [facility] Exam: MR Pelvis Without and With Contrast; Prost ate Exam date and time: 01/15/2019 12:58 PM Age: 68 years old Clinical history: C61 malignant neoplasm of pros lo[place]ano LABS AND CLINICAL REPORTS: Prostate-specific antigen: Not submitted. TECHNIQUE: Imaging protocol: Magnetic resonance images of t he pelvis without and with intravenous contrast. Exam focused on the prosta te. Contrast material: DOTAREM; Contrast volume: 16 ml; Contrast route: LT FOREARM; Other technique: Study was performed per prostat e protocol. COMPARISON: No relevant prior studies available. FINDINGS: Image quality is satisfactory. PROSTATE: Size: 4.9 x 3.8 x 4.2 cm Volume: 51 mL Peripheral Zone: Somewhat ill-defined approxima tely 2 cm focus of low T2 signal in the right mid/apical margin with corre sponding restricted diffusion and low ADC signal, series 801, images 14-16. A similar 1.5 cm low T2 sig nal focus left apex does not demonstrate restricted diffusion or low ADC signal, image 14. A 0.8 cm low T2 signal nodule in the left later al mid gland at the junction with the transition zone may demonstrate low ADC signal without restricted diffusion, image 19. Transition Zone: Small nodular high T2 signal f oci may reflect hyperplasia. Note: Currently the capability of reliably dete cting and characterizing clinically significant prostate cancer in the tr ansition zone with mpMRI is less than that of the peripheral zone. Seminal vesicles: Normal appearance. Extraprostatic extension: None BLADDER: Mild wall thickening and trabeculation anteriorly LYMPH NODES: 1.4 x 0.6 cm node left pelvic side wall/external iliac chain. BONES: Normal marrow signal for age. IMPRESSION: 1. 2 cm focus right mid/apical peripheral zone, PI-RADS 5. 2. 1.5 cm focus left apex of the peripheral zone , PI-RADS 3. 3. 0.8 cm focus left lateral mid gland at the ju nction with the transition zone, PI-RADS 4. 4. Prostatic hyperplasia transition zone. 5. 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 Abraham Faria MD On 01/16/2019 09:49:58; [id number]
[2022-10-13] MEDS ORDERED: HYDROCODONE/APAP 5/325 MG TAB ONE (19:26)
[2022-10-13] MEDS ORDERED: TDAP (DIPHTH,PERTUSS(ACELL),TET VAC) 0.5 ML VIAL IMVAC ONE (19:27)
--- NOTE | 2022-10-13 19:34 | EDPHYS ---
Physician Documentation [facility] Name: Freddy Alexander Age: 72 yrs Sex: Male : 1950 Arrival Date: 10/13/2022 Time: 18:27 Bed 14 Private MD: ED Physician Chip Anderson HPI: 10/13 19:02 This 72 yrs old Male presents to ER via Ambulatory with complaints of Eye Pain.rebecca 19:02 The patient is experiencing pain, The patient sustained an abrasion, contusion, rebecca Historical: - Allergies: 18:43 No Known Allergies; cm10 - PMHx: 18:43 Diabetes - IDDM; Hypertension; cm10 - PSHx: 18:43 spleenectomy; prostatectomy; Cholecystectomy; cm10 - Immunization history:: Adult Immunizations. - Social history:: Smoking status: unknown. - Family history:: not pertinent. ROS: 19:03 Constitutional: Negative for fever, chills, and weight loss, ENT: Negative for injury, rebecca pain, and discharge, Neck: Negative for injury, pain, and swelling, Cardiovascular: Negative for chest pain, palpitations, and edema, Respiratory: Negative for shortness of breath, cough, wheezing, and pleuritic chest pain, Abdomen/GI: Negative for abdominal pain, nausea, vomiting, diarrhea, and constipation, Back: Negative for injury and pain, : Negative for injury, bleeding, discharge, and swelling, MS/Extremity: Negative for injury and deformity, Skin: Negative for injury, rash, and discoloration, Neuro: Negative for headache, weakness, numbness, tingling, and seizure, Psych: Negative for depression, anxiety, suicide ideation, homicidal ideation, and hallucinations, Allergy/Immunology: Negative for hives, rash, and allergies, Endocrine: Negative for neck swelling, polydipsia, polyuria, polyphagia, and marked weight changes, Hematologic/Lymphatic: Negative for swollen nodes, abnormal bleeding, and unusual bruising. 19:03 Eyes: Positive for Exam: 19:29 Constitutional: This is a well developed, well nourished patient who is awake, alert, rebecca and in no acute distress. Head/Face: Normocephalic, atraumatic. ENT: Nares patent. No nasal discharge, no septal abnormalities noted. Tympanic membranes are normal and external auditory canals are clear. Oropharynx with no redness, swelling, or masses, exudates, or evidence of obstruction, uvula midline. Mucous membranes moist. Neck: Trachea midline, no thyromegaly or masses palpated, and no cervical lymphadenopathy. Supple, full range of motion without nuchal rigidity, or vertebral point tenderness. No Meningismus. Chest/axilla: Normal chest wall appearance and motion. Nontender with no deformity. No lesions are appreciated. Cardiovascular: Regular rate and rhythm with a normal S1 and S2. No gallops, murmurs, or rubs. Normal PMI, no JVD. No pulse deficits. Respiratory: Lungs have equal breath sounds bilaterally, clear to auscultation and percussion. No rales, rhonchi or wheezes noted. No increased work of breathing, no retractions or nasal flaring. Abdomen/GI: Soft, non-tender, with normal bowel sounds. No distension or tympany. No guarding or rebound. No evidence of tenderness throughout. Back: No spinal tenderness. No costovertebral tenderness. Full range of motion. Skin: Warm, dry with normal turgor. Normal color with no rashes, no lesions, and no evidence of cellulitis. MS/ Extremity: Pulses equal, no cyanosis. Neurovascular intact. Full, normal range of motion. Neuro: Awake and alert, GCS 15, oriented to person, place, time, and situation. Cranial nerves II-XII grossly intact. Motor strength 5/5 in all extremities. Sensory grossly intact. Cerebellar exam normal. Normal gait. Psych: Awake, alert, with orientation to person, place and time. Behavior, mood, and affect are within normal limits. 19:29 Eyes: Periorbital structures: appear normal, no acute changes, Pupils: equal, round, and reactive to light and accomodation, Extraocular movements: intact throughout, Conjunctiva: normal, Corneas: are normal, no acute changes, abrasion, is not appreciated, foreign body, is not appreciated, Sclera: abrasion, of the lateral aspect of conjunctiva of left eye, SCLERA DEFECT, Anterior chamber: normal, no acute changes, Lids and lashes: appear normal, no acute changes. Vital Signs: 18:41 BP 131 / 74; Pulse 58; Resp 18; Temp 98.3; Pulse Ox 98% ; Weight 72.57 kg; Height 5 ft. cm10 6 in. ; Pain 8/10; 19:30 BP 118 / 85; Pulse 56; Resp 18; Pain 4/10; fu 18:41 Body Mass Index 25.82 (72.57 kg, 167.64 cm) cm10 18:41 Pain Scale: Adult cm10 19:30 Pain Scale: Adult fu MDM: 18:47 Patient medically screened. rebecca 19:31 Differential diagnosis: Corneal abrasion of Corneal ulcer of Foreign body in Data rebecca reviewed: vital signs, nurses notes. Consideration of Admission/Observation Escalation of care including admission/observation considered. I considered the following discharge prescriptions or medication management in the emergency department Medications were administered in the Emergency Department. See MAR. Historians other than the Patient: Family Member: . Care significantly affected by the following chronic conditions: Diabetes, Hypertension. 19:36 ED course: DR Poonam COLLAZO NO PATCH AND VIGAMOX, CLOSE FOLLOW UP. rebecca Administered Medications: 19:26 Drug: Tetanus Toxoid,Adsorbed IM 0.5 ml {Sound Tester: [employer] Exp: cm10 03/15/2023. Lot #: [id number]. } Route: IM; Site: left deltoid; 19:28 Follow up: Response: (VIS) Vaccine information sheet provided today. Questions and/or cm10 concerns addressed. VIS edition date: Oct 01, 2020.; No adverse reaction 19:26 Drug: [place] PO 5 mg-325 mg 1 tabs Route: PO; cm10 19:29 Not Given (Duplicate Order): Vigamox Ophthalmic Drops 0.5 % 2 drops Ophthalmic once [facility] 19:43 Drug: ERYTHromycin Ophthalmic Ointment 1 application Route: Ophthalmic; Site: left eye; fu Disposition Summary: 10/13/22 19:33 Discharge Ordered Location: Home rebecca Problem: new rebecca Symptoms: have improved rebecca Condition: Stable rebecca Diagnosis - Unspecified disorder of sclera - SCLEAR SUPERFICAL LACERATION rebecca Followup: rebecca - With: Private Physician - When: 2 - 3 days - Reason: Recheck today's complaints, Continuance of care, Re-evaluation by your physician Followup: rebecca - With: Nam Collazo MD - When: 2 - 3 days - Reason: Recheck today's complaints, Re-evaluation by your physician Discharge Instructions: - Discharge Summary Sheet rebecca - How to Use Eye Drops and Eye Ointments rebecca - Eye Patch, Adult rebecca Forms: - Medication Reconciliation Form [facility] - Thank You Letter rebecca - Antibiotic Education rebecca - Prescription Opioid Use rebecca - Patient Portal Instructions [facility] - Leadership Thank You Letter [facility] Prescriptions: - acetaminophen-codeine 300-30 mg Oral tablet - take 2 tablet by ORAL route every 6 hours as needed for pain; 15 tablet; [facility] Refills: 0, Product Selection Permitted - Vigamox 0.5 % Ophthalmic Drops - instill 1 drop by OPHTHALMIC route every 6 hours for 7 days; 5 milliliter; [facility] Refills: 0, Product Selection Permitted Signatures: Chip Anderson MD MD cha Umadhay, Felix, RN RN Paty Kilpatrick RN RN cm10
--- NOTE | 2022-10-13 19:34 | ER ---
Nurse's Notes [facility] Name: Freddy Alexander Age: 72 yrs Sex: Male : 1950 Arrival Date: 10/13/2022 Time: 18:27 Bed 14 Private MD: Diagnosis: Unspecified disorder of sclera-SCLEAR SUPERFICAL LACERATION Presentation: 10/13 18:41 Chief complaint: Patient states: was pulling a wire and it hit his left eye. Pt states cm10 that his eye was bleeding at the time. Eye noted to be red in triage. Pt reports blurred vision to left eye since accident. Reports happened 3hrs ago. Coronavirus screen: Vaccine status: Patient reports receiving the 2nd dose of the covid vaccine. Ebola Screen: Patient denies travel to an Ebola-affected area in the 21 days before illness onset. No symptoms or risks identified at this time. The patient denies any loss of vision. Initial Sepsis Screen: Does the patient meet any 2 criteria? No. Patient's initial sepsis screen is negative. Does the patient have a suspected source of infection? No. Patient's initial sepsis screen is negative. Risk Assessment: Do you want to hurt yourself or someone else? Patient reports no desire to harm self or others. Onset of symptoms was October 13, 2022. 18:41 Method Of Arrival: Ambulatory cm10 18:41 Acuity: DEBRA 3 cm10 Historical: - Allergies: 18:43 No Known Allergies; cm10 - PMHx: 18:43 Diabetes - IDDM; Hypertension; cm10 - PSHx: 18:43 spleenectomy; prostatectomy; Cholecystectomy; cm10 - Immunization history:: Adult Immunizations. - Social history:: Smoking status: unknown. - Family history:: not pertinent. Screenin:45 [facility] ED Fall Risk Assessment (Adult) History of falling in the last 3 months, fu including since admission No falls in past 3 months (0 pts). Abuse screen: Denies threats or abuse. Nutritional screening: No deficits noted. Tuberculosis screening: No symptoms or risk factors identified. Assessment: 19:30 General: Appears in no apparent distress. Behavior is calm, cooperative, appropriate fu for age. Pain: Complains of pain in left eye Pain does not radiate. Neuro: Level of Consciousness is awake, alert, obeys commands, Oriented to person, place, time, situation, Gait is steady, Speech is normal, Facial symmetry appears normal. Respiratory: No deficits noted. EENT: Eyes are tearing on left eye Sclera/Cornea are reddened in left eye. Derm: No signs and/or symptoms reported regarding the dermatologic system. Vital Signs: 18:41 BP 131 / 74; Pulse 58; Resp 18; Temp 98.3; Pulse Ox 98% ; Weight 72.57 kg; Height 5 ft. cm10 6 in. ; Pain 8/10; 19:30 BP 118 / 85; Pulse 56; Resp 18; Pain 4/10; fu 18:41 Body Mass Index 25.82 (72.57 kg, 167.64 cm) cm10 18:41 Pain Scale: Adult cm10 19:30 Pain Scale: Adult fu ED Course: 18:29 Patient arrived in ED. ts1 18:43 Triage completed. cm10 18:43 Arm band placed on Patient placed in an exam room, on a stretcher. cm10 18:47 Chip Anderson MD is Attending Physician. rebecca 19:30 Joce Wu RN is Primary Nurse. fu 19:33 Nam Collazo MD is Referral Physician. rebecca 19:40 Patient did not have IV access during this emergency room visit. fu 19:45 No provider procedures requiring assistance completed. fu 19:55 Placed in gown. Call light in reach. Bed in low position. fu Administered Medications: 19:26 Drug: Tetanus Toxoid,Adsorbed IM 0.5 ml {Service Support Representative: [employer] ([employer]). Exp: cm10 03/15/2023. Lot #: [id number]. } Route: IM; Site: left deltoid; 19:28 Follow up: Response: (VIS) Vaccine information sheet provided today. Questions and/or cm10 concerns addressed. VIS edition date: Oct 01, 2020.; No adverse reaction 19:26 Drug: Flint PO 5 mg-325 mg 1 tabs Route: PO; cm10 19:29 Not Given (Duplicate Order): Vigamox Ophthalmic Drops 0.5 % 2 drops Ophthalmic once rebecca 19:43 Drug: ERYTHromycin Ophthalmic Ointment 1 application Route: Ophthalmic; Site: left eye; fu Medication: 19:29 Vaccine Information Statement (VIS) provided today. Questions and/or concerns cm10 addressed. VIS edition date: October 01, 2020. Outcome: 19:33 Discharge ordered by . rebecca 19:55 Discharged to home ambulatory, with family. carlos 19:55 Condition: stable 19:55 Discharge instructions given to patient, family, Instructed on discharge instructions, follow up and referral plans. Demonstrated understanding of instructions, follow-up care, medications, Prescriptions given X 2. 19:56 Patient left the ED. fu Signatures: Chip Anderson MD MD cha Umadhay, Felix, RN RN Radha Blakely PAS PAS ts1 Paty Mendez RN RN cm10
[2022-10-13] MEDS ORDERED: ERYTHROMYCIN 1 APPL/1 GM TUBE ONE (19:49)
[2022-10-13 20:07] VITALS: BP 131/74; TEMP 98.3; O2SAT 98
== END 2022-10-13 19:56 | disposition home or self-care (01) ==
LOC: ER 18:27
DX: S01.112A Laceration without foreign body of left eyelid and periocular area, initial encounter (principal); Z23 Encounter for immunization
CPT/HCPCS: 90471; 99284

== ENCOUNTER 2024-12-01 09:08 | Day surgery (SDC) | payer BC ==
[2024-11-28 15:14] LABS: Absolute Lymphocytes (CBC) 2.9 K/uL (0.7-4.9); Hematocrit 44.9 % (39.6-49.0); Hemoglobin 15.1 g/dL (13.6-17.9); MCH 32.5 pg (27.0-35.0); MCHC 33.7 g/dL (32.0-36.0); MCV 96.5 fL (80-100); MPV 8.8 fL (7.6-11.3); Nucleated RBC Absolute Count 0.0 (0-0); Nucleated Red Blood Cells % 0.1 % (0-0); RBC Red Blood Cell Count 4.65 M/uL (4.33-5.43); White Blood Count 8.60 thou/uL (4.3-10.9)
[2024-11-28 15:17] LABS: Anion Gap 7.2 mEq/L (5.0-15.0); BUN Blood Urea Nitrogen 11.0 mg/dL (7-18); Glucose Level 294.0 mg/dL (74-106); Potassium 4.2 mEq/L (3.5-5.1)
--- NOTE | 2024-11-28 15:47 | RAD REPORT ---
EXAM: Chest Pa And Lat (2 Views) HISTORY: 74 years Male PRE OP COMPARISON: 12/21/2018 FINDINGS: LUNGS/PLEURA: The lungs are clear. No pleural effusions or pneumothorax. No pulmonary edema. CARDIAC/MEDIASTINUM: The cardiac silhouette is within normal limits. UPPER ABDOMEN: No significant abnormality. BONES: No acute abnormality. LINES/TUBES/OTHER: N/A IMPRESSION: No evidence of acute cardiopulmonary disease.
[2024-12-01] MEDS ORDERED: MIDAZOLAM HCL 2 MG/2 ML INJ ONE (10:11)
[2024-12-01] MEDS ORDERED: FENTANYL CITR 100 MCG/2 ML ONE ×2 (10:11→11:55)
[2024-12-01] MEDS ORDERED: GLYCOPYRROLATE 0.2 MG/ML SYR ONE (10:11)
[2024-12-01] MEDS ORDERED: NEOSTIGMINE 1 MG/ML -10 ML VIAL ONE (10:11)
[2024-12-01] MEDS ORDERED: ONDANSETRON 4 MG/2 ML VIAL ONE (10:11)
[2024-12-01] MEDS ORDERED: ROCURONIUM 50 MG/5 ML VIAL IV ONE (10:12)
[2024-12-01] MEDS ORDERED: LIDOCAINE 2% MPF 5 ML VIAL ONE (10:12)
[2024-12-01] MEDS: NA CHLORIDE 0.9% 1,000 ML ONE (11:07)
[2024-12-01] MEDS: CEFAZOLIN SODIUM 1 GM/VIAL ONE (11:10)
[2024-12-01] MEDS ORDERED: EPHEDRINE SULF 50 MG/ML VIAL ONE (11:28)
--- NOTE | 2024-12-01 12:34 | P.BOP ---
Preoperative diagnosis: hx of prostate cancer, tender reducible right inguinal hernia Postoperative diagnosis: same Primary procedure: Open repair of tender reducible right inguinal hernia with mesh Estimated blood loss: <5cc Specimen: sac and lipoma of cord Findings: as above. Laparoscopy aborted due to dense adhesions Anesthesia: General Complications: None Implants: mesh plug and sheet Transferred to: Recovery Room Condition: Good
[2024-12-01] MEDS: HYDROMORPHONE HCL 0.5 MG/0.5 ML INJ ONE (13:08)
[2024-12-01 13:15] VITALS: O2SAT 99
[2024-12-01 14:07] VITALS: BP 127/69
[2024-12-01] MEDS: HYDROCODONE/APAP 10/325 TAB ONE (14:44)
[2024-12-01 15:28] VITALS: TEMP 97
--- NOTE | 2024-12-02 19:13 | OP ---
Surgeon: Roberth Mendez MD Preoperative Diagnoses: History of prostate cancer, tender reducible right inguinal hernia. Postoperative Diagnoses: History of prostate cancer, tender reducible right inguinal hernia. Procedure: Open repair of tender reducible right inguinal hernia with mesh. Estimated Blood Loss: Less than 5 cc. Specimens: Sac and lipoma of the cord. Findings: We started the case laparoscopically, but due to scar tissue, I believe it was not safe to continue laparoscopically. He has history of prostate surgery with multiple adhesions dense on the right inguinal region. For that reason, it was converted to open surgery to minimize the risk of any complications. Anesthesia: General plus local. Implant: A mesh plug and sheath. Indications: This is a case of a 74-year-old patient who came to us with a tender reducible right in guinal hernia. The benefits, alternatives, and risks of laparoscopic possible open repair of hernia with mesh fully explained, which include, but not limited to, infection, bleeding, damage to adjacent structures, anesthesia complication, recurrence, chronic pain, chronic numbness, [place], and even . He also understands this may not relieve any symptoms, he might need more than one surgical interve ntion. He has history of prostate cancer and radical prostatectomy. He still wants to try it laparo scopically, it is possible if the adhesions are not that dense. Description Of Procedure: I brought the patient to the operating room, placed in supine position. A nesthesia was induced without complication. Abdominal and inguinal region were prepped and draped in a sterile fashion. Local anesthesia was applied followed by infraumbilical incision and incision wa s carried down to until we found the anterior rectus sheath. Then the anterior rectus sheath was ope rosie. The muscle retracted laterally to expose the posterior rectus sheath. The extraperitoneal spac e was gently developed with the help of blunt dissection and a balloon tipped trocar was placed in th at area directed to the pubic symphysis. A laparoscope was then placed in the trocar and the balloon was inflated under direct visualization to create the extraperitoneal space. After that, the balloo n was deflated. The area was insufflated. The camera was placed once again and a 5 [address] was pl aced in the area just above the pubis symphysis and another one snf between the first and the sec ond one. At that moment, the preperitoneal space was further developed by exposing the inferior epig astric vessels, but at that moment, we noticed the dissection to be more difficult. There is scar ti ssue probably related to the previous surgery. I do not see any masses in that region, but then it b ecame to the point that we can no longer continue this way safe. So, at that moment, I proceeded the n to stop the laparoscopic procedure and then convert to an open procedure. At that moment, I procee ded to remove the trocars under direct visualization, checked for hemostasis. No bleeding. Closed t he anterior rectus sheath with #1 Vicryl. Then, after that, we made an incision in the right inguina l region after the sponge counts and instrument counts were correct from laparoscopic procedure. The incision was carried down to Sada's fascia and external oblique aponeurosis was identified and ope rosie in direction of the fibers to connect to the superficial inguinal ring. Ilioinguinal nerve, ilio hypogastric nerves were protected behind external oblique aponeurosis after fully identified with Pen rudy around the spermatic cord. We identified the hernia sac, dissected it free from the umbilical c ord structures as we keep them safe. The hernia sac was then opened and content reduced and then twi sted and suture ligated with a Prolene. The lipoma of the cord was ligated with a chromic. At that moment, I proceeded to then introduce a mesh plug in the deep inguinal ring, secured that in place wi th Prolene, and then after that, we put a mesh on the floor of the canal securing that to the pubic t ubercle, shelving edge of the inguinal ligament, and transversalis fascia and the tails around the sp ermatic cord without strangulation. That was done using Prolene. Once again, the nerve was protecte d at all times. No bleeding. At that moment, I brought the ilioinguinal nerve, iliohypogastric nerv e back into the inguinal canal, reconstructed the superficial inguinal ring and closed the external o blique aponeurosis with Prolene making sure the nerves were not included. The area was irrigated. A fter that, I closed Sada's fascia with chromic and then the skin with jon. Sponge counts and i nstrument counts were correct. At the end of the case, testicles, I believe, were in the scrotum. ASTON/YENI Voice ID: [id number] Report ID: [id number]
--- NOTE | 2024-12-02 19:13 | DS ---
Date of Discharge: 12/01/2024 Diagnoses: Prostate cancer, tender reducible right inguinal hernia. Procedure: Open repair of tender reducible right inguinal hernia with mesh. Condition: Stable. Disposition: Home. Activity: As tolerated. No heavy lifting. Discharge Instructions: Followup in my office in 1 week. Call for appointment at [phone]. Keep ar ea dry for 48 hours, then may shower. Keep jon intact. Cold compress of the right inguinal regio n for 24 hours. Medications were previously called to his pharmacy. ASTON/YENI Voice ID: [id number] Report ID: [id number]
== END 2024-12-01 15:15 | disposition home or self-care (01) ==
LOC: OR 09:08
PROVIDERS: ATTEND Surgery
PROC: 0YU50JZ Supplement Right Inguinal Region with Synthetic Substitute, Open Approach (ICD-10-PCS; principal; 2024-12-01 11:30)
DX: K40.90 Unilateral inguinal hernia, without obstruction or gangrene, not specified as recurrent (principal); Z85.46 Personal history of malignant neoplasm of prostate
CPT/HCPCS: 36415; 71046; 80048; 82947; 85025; 88302; 88304; 93005; J0690; J1171; J2003; J2250; J2405; J2704; J2710; J3010; J7030